=== PATIENT | male | born 1955 | race Caucasian/White ===

== ENCOUNTER 2017-04-29 12:22 | Inpatient (IN) ==
[~2017-04-29 12:22] MED LIST: GLYCOPYRROLATE 0.4 MG/2 ML VIAL ONE; HEPARIN 1,000 UNIT/1 ML VIAL ONE; LABETALOL 100 MG/20 ML VIAL IV ONE; LIDOCAINE 2% 5 ML VIAL ONE; NEOSTIGMINE 10 MG/10 ML VIAL ONE; ONDANSETRON 4 MG/2 ML VIAL ONE; PROPOFOL 200 MG/20 ML VIAL IV ONE; ROCURONIUM 100 MG/10 ML VIAL IV ONE; SUCCINYLCHOLINE 200 MG/10 ML VIAL ONE
[2017-04-29] MEDS ORDERED: HYDROmorphone 2 MG/1 ML VIAL IV STA ×3 (12:44→14:47)
[2017-04-29] MEDS ORDERED: ONDANSETRON ODT 4 MG TABLET PO STA (12:44)
--- NOTE | 2017-04-29 12:48 | Emergency Department Note ---
Arrival - Arrival Chief Complaint: Back Stated Complaint: abd pain ED Nursing Triage Note: Constant lower back pain for 3 days. States that pain is sharp and radiates to hips and ribs. States that it gets worse when he lays down. Diagnosed with AAA 3 years ago. Last check was 2 years ago. Mode of Arrival: Stretcher Limitations: No Limitations Source: Patient, Family, RN Notes Reviewed Time Seen by Provider: 04/29/17 12:39 - History of Present Illness HPI Narrative: Patient is a 61-year-old white male who is seen today with a 3 day history of low back pain and abdominal pain which is sharp. Patient denies nausea or vomiting. He denies any melena hematochezia or hematemesis. The patient does have a history of chronic low back pain and is scheduled to see a neurosurgeon next week at [facility] for evaluation of possible discectomy. Patient is routinely followed by Dr. Quintero. Patient has a known history of abdominal aortic aneurysm but has not had this followed up in some 2 years. Patient states that the last time he was seen for his aneurysm it was "3.2 cm". Onset (ago): day(s) (3) Consistency: constant Severity: moderate Quality: sharp Allergies/Adverse Reactions: Allergies Allergy/AdvReac Type Severity Reaction Status Date / Time Shellfish Allergy Severe NUMBNESS Verified 02/16/15 14:05 MYELOGRAM DYE Allergy Severe NUMBNESS Uncoded 02/16/15 14:04 Home Medications: Home Medications Medication Instructions Recorded Confirmed Type Albuterol Sulfate [Ventolin HFA] 2 puffs INH Q4-6H PRN 01/23/15 06/02/15 History Aspirin [Children's Aspirin] 81 mg PO DAILY 01/23/15 06/02/15 History Atorvastatin [Lipitor] 40 mg PO BEDTIME 01/23/15 06/02/15 History Carvedilol [Coreg] 12.5 mg PO BID 01/23/15 06/02/15 History Docusate Sodium [Colace] 100 mg PO PRN PRN 01/23/15 06/02/15 History Lisinopril 10 mg PO DAILY 01/23/15 06/02/15 History Morphine Sulfate [Morphine ER Cap] 30 mg PO BID 01/23/15 06/02/15 History Oxycodone HCl/Acetaminophen 1 each PO QID 01/23/15 06/02/15 History [Oxycodone-Acetaminophen 10-325] clonazePAM TAB [KlonoPIN] 1 mg PO BID 01/23/15 06/02/15 History Cyclobenzaprine [Flexeril] 10 mg PO BEDTIME PRN 06/02/15 06/02/15 History Lubiprostone [Amitiza] 24 mcg PO BID 06/02/15 06/02/15 History Multivitamin with Minerals [One 1 each PO DAILY 06/02/15 06/02/15 History Daily 50 Plus] Bisacodyl Tab [Dulcolax Tab] 10 mg PO DAILY PRN #60 tablet 06/03/15 Rx Polyethylene Glycol Powder 17 gm PO QID powder 06/03/15 Rx [Miralax] Review of System - Review of System 12 point system: reviewed and no additional remarkable complaints except as stated - Review of System Constitutional: Absent: chills, fever Respiratory: Absent: cough, respiratory distress Gastrointestinal: Present: as per HPI, abdominal pain, constipation. Absent: nausea, vomiting, diarrhea, hematemesis, melena, hematochezia Musculoskeletal: Present: back pain (Chronic low back pain) Skin: Absent: rash Medical,Surgical,& Family Hx - Medical History Cardio: History of: Aneurysm (aortic), Hypertension, [place] (TRIPLE BYPASS 2006) Psychological: History of: Depression Respiratory: History of: Obstructive Sleep Apnea (wears c pap) Genitourinary: History of: Bladder Problem (can not empty) Gastrointestinal: History of: GI Problems (chronic constipation) Musculoskeletal: History of: Musculoskeletal Problems (arthritis) Hematology: History of: Anemia - Surgical History Cardiac Surgeries: Sugical HX of: Cardiac Surgery (CABG) Abdominal Surgeries: Surgical HX of: Hernia Repair (1972) - Family History Family History: Reports;: Family Cancer (father), Family Diabetes (mother and uncle), Family Hypertension (everyone), Family Stroke (mother brother) - Social History Smoking Status: Current every day smoker Exam Vital Signs: Vital Signs Temperature 97.3 F L 04/29/17 12:28 Pulse Rate 66 04/29/17 12:46 Respiratory Rate 20 04/29/17 12:46 Blood Pressure 175/92 04/29/17 12:46 O2 Sat by Pulse Oximetry 100 04/29/17 12:46 GENERAL: This is a chronically ill-appearing white male in no apparent distress. VITAL SIGNS: Reviewed HEENT: Head is atraumatic and normocephalic. Pupils are equal round react to light. Extraocular movements are intact. Oropharynx is benign with moist mucous membranes. NECK: Neck is soft and supple without tenderness. There are no masses. There is no lymphadenopathy. LUNGS: Lungs are clear to auscultation. Chest rises symmetrically. There is no chest wall tenderness. CV: Heart is regular rate and rhythm without murmurs rubs or gallops. ABDOMEN: Abdomen is soft, nontender to palpation. Patient does have a pulsatile mass just to the left of the umbilicus. There is no organomegaly. Bowel sounds are present and active. Pulses are 2+ and bilaterally equal at femoral. SKIN: Skin is warm and dry. No rash. EXTREMITIES: Patient has full range of motion without tenderness. There is no pedal edema. NEUROLOGIC: Awake alert and oriented 4. Cranial nerves II through XII are grossly intact. Motor is 5 over 5 in all extremities bilaterally. Deep tendon reflexes are 2+ and bilaterally equal. Course - Consultations Consultation #1: Discussed with Dr. Wu. Patient will be seen in the emergency department. Time: 14:12 Consultation #2: Discussed with Dr. Thorpe. Time: 14:12 Results - Labs CBC & BMP: 04/29/17 12:42 04/29/17 12:42 Lab Results: I have reviewed the patients labs Labs: Laboratory Tests 04/29/17 12:42 Troponin I < 0.015 - EKG EKG results: interpreted by ERMD - Impressions EKG: Normal sinus rhythm with a rate of 64, normal ST-T waves, normal axis. - Diagnostic Findings Procedure: Abdominal x-ray: image reviewed by me (Nonspecific gas pattern, no free air.), Chest x-ray: image reviewed by me (Old median sternotomy, Mediport present on the right with tip in the superior vena cava.), CT Abdomen and Pelvis : image reviewed by me, report reviewed by me (CTA of the abdomen: Patient has markedly irregular abdominal aortic aneurysm with surrounding periaortic stranding consistent with inflammation. See report.) Disposition Clinical Impression: Chronic low back pain, Abdominal aortic aneurysm, Essential hypertension, Medical non-compliance, Coronary artery disease, Carotid artery disease Case discussed with: patient Condition: Stable
[2017-04-29] MEDS ORDERED: ONDANSETRON ODT 4 MG TABLET PO ONE (12:51)
[2017-04-29] MEDS ORDERED: HYDROmorphone 2 MG/1 ML VIAL ONE ×3 (12:52→14:43)
[2017-04-29 12:54] LABS: Basophils % 0.1 % (0.0-0.8); Eosinophils # 0.1 10*3/uL (0.0-0.87); Eosinophils % 0.6 % (0.00-10.9); Hematocrit 34.9 VOL% (42.0-52.0); Hemoglobin 12.4 GM/DL (14.0-18.0); Immature Granulocytes % 0.3 %; Immature Granulocytes Absolute 0.02 #; Lymphocytes # 1.8 10*3/uL (1.4-4.0); Lymphocytes % 22.8 % (21.2-54.2); Mean Corpuscular HGB Conc 35.5 GM/DL (32-36); Mean Corpuscular Hemoglobin 31 PG (27-34); Mean Corpuscular Volume 86.2 FL (87-102); Mean Platelet Volume 9.9 FL (9.6-12.0); Monocytes # 0.8 10*3/uL (0.11-0.8); Monocytes % 9.9 % (1.7-12.7); Neutrophils # 5.2 10*3/uL (1.4-7.4); Neutrophils % 66.3 % (38.7-73.9); Platelet Count 243 T/CUMM (130-400); Red Blood Count 4.05 MC/CUMM (3.8-5.5); Red Cell Distribution Width 12.1 % (9.3-17.3); White Blood Count 7.8 T/CUMM (4-12)
[2017-04-29 13:03] LABS: Apearance,Urine CLEAR (Clear); Bacteria,Urine Occasional /HPF (Few); Bilirubin,Urine Negative (Negative); Blood, Urine Negative (Negative); Glucose,Urine (UA) Negative (Negative); Ketones,Urine 80 mg/dL (Negative); Mucus,Urine Occasional /LPF (Occasional); Nitrite,Urine Negative (Negative); Protein,Urine 30 MG/DL; RBC,Urine 1 /HPF (0-4); Urine Color Yellow (Yellow); Urine Specific Gravity 1.018 (1.001-1.035); Urine Urobilinogen < 2.0 EU/DL (0.2-1.0); WBC,Urine <1 /HPF (0-6)
[2017-04-29 13:34] LABS: Alanine Aminotransferase 15 U/L (16-61); Albumin 3.6 G/DL (3.4-5.0); Alkaline Phosphatase 82 U/L (45-117); Aspartate Amino Transferase 10 U/L (0-37); Blood Urea Nitrogen 13 MG/DL (7-18); Calcium 9.2 MG/DL (8.5-10.1); Glucose 89 MG/DL (74-106); Osmolality,Calculated 271.8 MOS/KG (273-304); Sodium 137 MMOL/L (136-145); Total Protein 7.1 G/DL (6.4-8.3); Troponin I Only < 0.015 NG/ML (0.00-0.045)
--- NOTE | 2017-04-29 13:56 | XRay Report ---
XR chest 1V portable Indication: Generalized abdominal pain Comparison: Chest x-ray dated June 02, 2015 Technique: Single frontal view of the chest. Findings: Stable chest x-ray without acute cardiopulmonary process demonstrated. Status post sternotomy. Right-sided port catheter appears grossly unchanged. Chronic change of the lungs without focal consolidation, pleural effusion, or pneumothorax. Visualized osseous and surrounding soft tissue structures appear grossly unchanged. IMPRESSION: Stable chest x-ray without acute cardiopulmonary process demonstrated. PROCEDURE INTERPRETED AT [facility] DEPARTMENT OF RADIOLOGY Final Report Signed by: Dr Dandre Vu
[2017-04-29] MEDS ORDERED: ONDANSETRON 4 MG/2 ML VIAL ONE (13:58)
--- NOTE | 2017-04-29 14:01 | XRay Report ---
XR abdomen 2V Indication: Generalized abdominal pain Comparison: None Technique: Frontal views of the abdomen in the supine and upright position. Findings: Contrast material noted within the urinary collecting system and bladder. Nonspecific nonobstructive bowel gas pattern. Visualized osseous and surrounding soft tissue structures demonstrate no acute abnormality. IMPRESSION: No acute abnormality demonstrated. PROCEDURE INTERPRETED AT [facility] DEPARTMENT OF RADIOLOGY Final Report Signed by: Dr Dandre Vu
[2017-04-29] MEDS ORDERED: LABETALOL 20 MG/4 ML SYRINGE IV STA (14:02)
--- NOTE | 2017-04-29 14:02 | CT Report ---
History is abdominal pain with abdominal aortic aneurysm Axial images obtained with 2-D multiplanar reconstruction images and 3-D CTA reconstruction images also stored and interpreted 100 cc Omni 350 utilized Comparison 06/02/2015 No space-occupying mass in the liver, spleen, pancreas, adrenals, or right kidney. There is a 2.3 cm cyst in lower pole left kidney. Bowel is unopacified There is an abdominal aortic aneurysm measuring up to at least 3.7 cm compared to 2.9 cm in the prior study. There has been interval development of marked worsening irregularity of the opacified lumen with several areas of the irregular contours of the opacified lumen and this small linear defects within the contrast, well below the level of the renal arteries. A more focal 1 cm area of penetrating ulcer or contained rupture extends anteriorly just above the bifurcation. There has been development of hematoma surrounding the abdominal aortic aneurysm measuring up to at least 1.2 cm in thickness. There is some mild additional stranding in surrounding fat. There is minimal plaque in the celiac and SMA origins. The are felt to be single renal arteries bilaterally. There is a proximal bifurcation of the left renal artery. The CHATA is patent. Mild plaque and stenosis of the left common iliac artery present. Minimal plaque present in the external iliac arteries Pelvis: There is a tiny amount of nonspecific free fluid in the pelvis. Minimal diverticuli present. Critical test results personally discussed with the ordering physician at 1:50 PM. Impression: Enlarging abdominal aortic aneurysm with development of marked irregularity of the lumen consistent with new large penetrating ulcer and/or contained rupture with new surrounding hematoma. The CT exam was performed using one or more of the following dose reduction techniques: Automated exposure control, adjustment of the mA and/or kV according to patient size, or use of iterative reconstruction technique. PROCEDURE INTERPRETED AT [facility] DEPARTMENT OF RADIOLOGY Final Report Signed by: Dr. Jennifer Luis
[2017-04-29] MEDS ORDERED: LABETALOL 20 MG/4 ML SYRINGE IV ONE (14:06)
[2017-04-29] MEDS ORDERED: ONDANSETRON 4 MG/2 ML VIAL IV STA (14:11)
[2017-04-29] MEDS ORDERED: ONDANSETRON 4 MG/2 ML VIAL IV PRN (16:20)
[2017-04-29] MEDS ORDERED: HYDROmorphone 2 MG/1 ML VIAL IV PRN (16:20)
[2017-04-29] MEDS ORDERED: SODIUM CHLORIDE 0.45% 1,000 ML IV SCH (16:20)
[2017-04-29] MEDS ORDERED: ACETAMINOPHEN 325 MG TABLET PO PRN (16:20)
[2017-04-29] MEDS ORDERED: oxyCODONE/ACETAMINOPHEN 5-325 MG TABLET PO PRN (16:33)
[2017-04-29] MEDS ORDERED: NALOXONE 0.4 MG/ML VIAL IV PRN (16:34)
[2017-04-29] MEDS ORDERED: NITROPRUSSIDE 50 MG/2 ML VIAL ONE (16:43)
--- NOTE | 2017-04-29 16:48 | General Surg History&Physical ---
Assessment and Plan (1) Abdominal aneurysm Status: Acute Assessment and plan: Mr. Flores has been acutely symptomatic aortic aneurysm that is tender. We feel that the benefits of endovascular repair outweigh the risks of observing him in critical care area tonight over immediate repair in an open fashion. I have discussed these plans in detail with Mr. Pennington and his explaining the alternatives fully they understand and accept. Current Visit: Yes History of Present Illness Chief complaint: symptomatic AAA History of present illness: Mr. Wooten is a 61 year old male Justin Flores a 61-year-old man who I met in the past with a modest abdominal aortic aneurysm that was asymptomatic. I had not seen him since 2014 at which time his aneurysm was 3 cm in maximum diameter. Mr. Pennington has a history of chronic back pain and has taken a number of pain medications over the years currently on fentanyl patch but states that he developed worsening back pain approximately a week ago and approximately 3 days ago began radiating to his lower abdomen. This is different and he is come to the emergency room where CT scan reveals a significantly changed abdominal aortic aneurysm. It measures greater than 4 cm in diameter but has an inflammatory component surrounding it and some ulceration. This is difficult to determine if there is actually a dissection in the intima or just within the thrombus and whether or not this is a acutely expanding aneurysm or an inflammatory aneurysm. His vital signs have been stable with no tachycardia his blood pressures been up and has been off of his pain medication his blood pressure meds for some time. He does have a past history of coronary bypassing and right carotid endarterectomy done in [place] number of years ago. He has not seen a handbell choir director at any recent time but has not had any particular chest pain to suggest acute changes in his coronary disease. I reviewed the situation with Dr. Kyaw Thorpe feel that Mr. Wooten is a good candidate for an endovascular aneurysm repair and we feel that it is very reasonable approach to manage him with close observation tonight and plan an endovascular repair in the morning when a graft will become available. I discussed this with Mr. Pennington and his explaining our physician explaining the alternative of an open repair immediately but I think at this point in time it is a reasonable approach for him to be observed in intensive care unit with the plan for endovascular repair of his aortic aneurysm tomorrow he understands and agrees Home Medications Medication Instructions Recorded Confirmed Type Oxycodone HCl/Acetaminophen 1 each PO Q8H PRN 04/12/15 07/17/17 History [Oxycodone-Acetaminophen 10-325] fentaNYL 50 MCG/HR PATCH 1 patch TRANSDERM Q3DAY 04/29/17 04/29/17 History [Duragesic 50 Patch] Allergies Allergy/AdvReac Type Severity Reaction Status Date / Time Shellfish Allergy Severe NUMBNESS Verified 02/16/15 14:05 MYELOGRAM DYE Allergy Severe NUMBNESS Uncoded 02/16/15 14:04 Medical,Surgical,& Family Hx - Medical History Cardio: History of: Aneurysm (aortic), Hypertension, [place] (TRIPLE BYPASS 2006) Psychological: History of: Depression Respiratory: History of: Obstructive Sleep Apnea (wears c pap) Genitourinary: History of: Bladder Problem (can not empty) Gastrointestinal: History of: GI Problems (chronic constipation) Musculoskeletal: History of: Herniated Disk, Musculoskeletal Problems (arthritis ) Hematology: History of: Anemia - Surgical History Cardiac Surgeries: Sugical HX of: Cardiac Surgery (CABG) Abdominal Surgeries: Surgical HX of: Hernia Repair (1972) - Family History Family History: Reports;: Family Cancer (father), Family Diabetes (mother and uncle), Family Hypertension (everyone), Family Stroke (mother brother) - Social History Smoking Status: Current every day smoker Frequency of Alcohol Use: None Type of Drug Use: None, Opiates Exam - Constitutional Vitals: Period Temp Pulse Resp BP Sys/Bray Pulse Ox Last 24 Hr 97.3 F-97.3 F 63-67 18-20 143-189/75-103 96-100 General appearance: normal weight, mild distress - Head Head exam: Present: normal inspection - Eye Eye exam: Present: EOMI Pupils: Present: MISA - ENT ENT exam: Present: normal external ear exam, normal oropharynx Mouth exam: Present: normal voice - Neck Neck exam: Present: normal inspection - Respiratory Respiratory exam: Present: clear to auscultation bilaterally - Cardiovascular Cardiovascular exam: Present: RRR, other - GI/Abdominal GI/Abdominal exam: Present: normal bowel sounds, tenderness (Tenderness in the lower midline), other (Aneurysm is not palpable no sign of flank contusions) - Extremities Exam Extremities exam: Present: normal inspection - Back Exam Back exam: Present: normal inspection - Neurological Exam Neurological exam: Present: alert, oriented X3 Speech: Present: normal - Skin Skin exam: Present: normal color 12 point system: reviewed and no additional remarkable complaints except as stated Results - Labs CBC & BMP: 04/29/17 12:42 04/29/17 12:42
[2017-04-29] MEDS ORDERED: NITROPRUSSIDE 100 MG in DEXTROSE 5% 246 ML IV SCH (17:00)
[2017-04-29] MEDS ORDERED: fentaNYL 50 MCG/HR PATCH TRANSDERM SCH (17:00)
--- NOTE | 2017-04-29 17:03 | Hospitalist Consult Note ---
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 Wooten is a 61 year old male a modest abdominal aortic aneurysm that was asymptomatic. I had not seen him since 2014 at which time his aneurysm was 3 cm in maximum diameter. Mr. Pennington has a history of chronic back pain and has taken a number of pain medications over the years currently on fentanyl patch but states that he developed worsening back pain approximately a week ago and approximately 3 days ago began radiating to his lower abdomen. This is different and he is come to the emergency room where CT scan reveals a significantly changed abdominal aortic aneurysm. It measures greater than 4 cm in diameter but has an inflammatory component surrounding it and some ulceration. Patient ran out of his blood pressure medication one month ago and did not have them refilled. CC: Mode Wu MD - Home Medications and Allergies Home Medications: Home Medications Medication Instructions Recorded Confirmed Type Oxycodone HCl/Acetaminophen 1 each PO Q8H PRN 01/23/15 04/29/17 History [Oxycodone-Acetaminophen 10-325] fentaNYL 50 MCG/HR PATCH 1 patch TRANSDERM Q3DAY 04/29/17 04/29/17 History [Duragesic 50 Patch] Allergies/Adverse Reactions: Allergies Allergy/AdvReac Type Severity Reaction Status Date / Time Shellfish Allergy Severe NUMBNESS Verified 02/16/15 14:05 MYELOGRAM DYE Allergy Severe NUMBNESS Uncoded 02/16/15 14:04 Medical,Surgical,& Family Hx - Medical History Cardio: History of: Aneurysm (aortic), Hypertension, [place] (TRIPLE BYPASS 2006) Psychological: History of: Depression Respiratory: History of: Obstructive Sleep Apnea (wears c pap) Genitourinary: History of: Bladder Problem (can not empty) Gastrointestinal: History of: GI Problems (chronic constipation) Musculoskeletal: History of: Herniated Disk, Musculoskeletal Problems (arthritis ) Hematology: History of: Anemia - Surgical History Cardiac Surgeries: Sugical HX of: Cardiac Surgery (CABG) Abdominal Surgeries: Surgical HX of: Hernia Repair (1972) - Family History Family History: Reports;: Family Cancer (father), Family Diabetes (mother and uncle), Family Hypertension (everyone), Family Stroke (mother brother) - Social History Smoking Status: Current every day smoker Frequency of Alcohol Use: None Type of Drug Use: None, Opiates Marital Status: Lives With:: Spouse Functional capacity: independent ambulation - Constitutional Constitutional: Absent: fever(s), headache(s), weakness - EENT Eyes: Absent: blurry vision, diplopia Ears: Absent: decreased hearing, ear discharge Nose, mouth and throat: Absent: headache(s), sore throat - Cardiovascular Cardiovascular: Absent: chest pain at rest, dyspnea - Respiratory Respiratory: Absent: dyspnea, dyspnea on exertion - Gastrointestinal Gastrointestinal: Present: abdominal pain, constipation. Absent: diarrhea, nausea, vomiting - Genitourinary Genitourinary: Absent: difficulty urinating, dysuria - Musculoskeletal Musculoskeletal: Present: back pain - Neurological Neurological: Absent: headache(s), syncope - Psychiatric Psychiatric: Absent: anxiety, depression - Endocrine Endocrine: Absent: fatigue, heat intolerance - Hematologic/Lymphatic Hematologic/Lymphatic: Absent: easy bleeding, easy bruising Exam - Constitutional Vitals: Period Temp Pulse Resp BP Sys/Bray Pulse Ox Last 24 Hr 97.3 F-97.3 F 63-67 18-20 143-189/75-103 96-100 General appearance: normal weight, mild distress - Head Head exam: Present: normal inspection, normocephalic - Eye Eye exam: Present: EOMI. Absent: scleral icterus Pupils: Present: MISA, normal accommodation - ENT ENT exam: Present: normal exam, normal external ear exam - Neck Neck exam: Absent: lymphadenopathy, thyromegaly - Respiratory Respiratory exam: Present: clear to auscultation bilaterally. Absent: rhonchi, wheezes - Cardiovascular Cardiovascular exam: Present: regular rate and rhythm. Absent: systolic murmur - GI/Abdominal GI/Abdominal exam: Present: normal bowel sounds, soft. Absent: tenderness - Extremities Exam Extremities exam: Present: normal inspection, normal capillary refill - Neurological Exam Neurological exam: Present: alert, oriented X3, CN II-XII intact, reflexes normal. Absent: motor sensory deficit - Psychiatric Psychiatric exam: Present: normal affect, normal mood - Skin Skin exam: Present: normal color, warm Results - Labs CBC & BMP: 04/29/17 12:42 04/29/17 12:42 Lab Results: I have reviewed the past 24 hour labs - Diagnostic Findings Procedure: CT Abdomen and Pelvis: report reviewed by me (enlarging AAA marked irregularity may be due to inflammation)
--- NOTE | 2017-04-29 17:06 | Inventional Radiology Consult ---
Assessment and Plan - Time spent with patient Time spent with patient: Less than 30 minutes IR Consult - Data of Consult Patient: new to practice Consult date: 05/06/17 Requesting Physician: Mode Wu - Consult Narrative Reason for consult: abdominal pain, enlarging AAA History of present illness: A/P: enlarging AAA with new/worsening abdominal pain - concerning for impending rupture. Will admit to ICU with aggressive BP control for EVAR tomorrow. Dr. Justin Wu also seeing this patient. risk of procedure d/w with patient and family Sugar is a 61 year old M Mr. Pennington is a known patient of Dr. Wu, who was seen several years ago with a small aortic aneurysm. However, he presents to the emergency room today with new uncharacteristic back pain and abdominopelvic pain. Imaging demonstrates a abdominal aortic aneurysm which has increased in size since prior imaging, (now measuring 3.3 cm) with marked irregularity of the mural thrombus and/or possible small focal ulcerative plaques. Additionally , there is moderate surrounding inflammatory changes and a degree of inflammatory aortitis is not excluded. No nausea vomiting. No chest pain or shortness of breath. Patient's oracle erp architect is in [place]. History of coronary stenting and subsequent triple bypass approximately 10 years ago. Brief review of systems: General: No fevers. Cardiovascular: No chest pain. Respiratory: No significant productive cough shortness of breath. Gastrointestinal: No nausea vomiting or diarrhea reported. Genitourinary: No change in bladder habits. Musculoskeletal: Long history of back pain, patient sees pain management for this. Endocrinologic/integumentary: No endocrinologic disorders. No easy bruising/ bleeding. - Home Medications and Allergies Home Medications: Home Medications Medication Instructions Recorded Confirmed Type Oxycodone HCl/Acetaminophen 1 each PO Q8H PRN 01/23/15 04/29/17 History [Oxycodone-Acetaminophen 10-325] fentaNYL 50 MCG/HR PATCH 1 patch TRANSDERM Q3DAY 04/29/17 04/29/17 History [Duragesic 50 Patch] Allergies/Adverse Reactions: Allergies Allergy/AdvReac Type Severity Reaction Status Date / Time Shellfish Allergy Severe NUMBNESS Verified 02/16/15 14:05 MYELOGRAM DYE Allergy Severe NUMBNESS Uncoded 02/16/15 14:04 12 point system: reviewed and no additional remarkable complaints except as stated (see hpi) Medical,Surgical,& Family Hx - Medical History Cardio: History of: Aneurysm (aortic), Hypertension, CT (TRIPLE BYPASS 2006) Psychological: History of: Depression Respiratory: History of: Obstructive Sleep Apnea (wears c pap) Genitourinary: History of: Bladder Problem (can not empty) Gastrointestinal: History of: GI Problems (chronic constipation) Musculoskeletal: History of: Herniated Disk, Musculoskeletal Problems (arthritis ) Hematology: History of: Anemia - Surgical History Cardiac Surgeries: Sugical HX of: Cardiac Surgery (CABG) Abdominal Surgeries: Surgical HX of: Hernia Repair (1972) - Family History Family History: Reports;: Family Cancer (father), Family Diabetes (mother and uncle), Family Hypertension (everyone), Family Stroke (mother brother) - Social History Smoking Status: Current every day smoker Frequency of Alcohol Use: None Type of Drug Use: None, Opiates Exam - Labs CBC & BMP: 04/29/17 12:42 04/29/17 12:42 - Constitutional Vitals: Period Temp Pulse Resp BP Sys/Bray Pulse Ox Last 24 Hr 97.3 F-97.3 F 63-67 18-20 143-189/75-103 96-100 General appearance: over weight - Eye Eye exam: Present: EOMI - Respiratory Respiratory exam: Present: clear to auscultation bilaterally - Cardiovascular Cardiovascular exam: Present: regular rate and rhythm Peripheral pulses: 2+: Common Femoral (R), Common Femoral (L), Dorsalis Pedis (R ), Dorsalis Pedis (L) - GI/Abdominal GI/Abdominal exam: Present: hyperactive bowel sounds - Neurological Exam Neurological exam: Present: alert, oriented X3 - Psychiatric Psychiatric exam: Present: normal affect, normal mood - Skin Skin exam: Present: normal color, dry
[2017-04-29] MEDS: HYDROmorphone PCA 30 MG/30 ML SYRINGE IV SCH (17:13)
[2017-04-29] MEDS: amLODIPine 10 MG TABLET PO SCH (17:13)
[2017-04-29 18:12] LABS: Calcium 8.6 MG/DL (8.5-10.1); Magnesium 1.9 MG/DL (1.8-2.4); Osmolality,Calculated 274.8 MOS/KG (273-304)
[2017-04-29] MEDS ORDERED: CHLORHEXIDINE 4% SOLN 118 ML BOTTLE TOP ONE (21:00)
[2017-04-30 04:10] LABS: Basophils % 0.3 % (0.0-0.8); Eosinophils # 0.2 10*3/uL (0.0-0.87); Eosinophils % 3.1 % (0.00-10.9); Hematocrit 33.1 VOL% (42.0-52.0); Immature Granulocytes % 0.3 %; Immature Granulocytes Absolute 0.02 #; Lymphocytes % 34.3 % (21.2-54.2); Mean Corpuscular HGB Conc 33.2 GM/DL (32-36); Mean Corpuscular Hemoglobin 30 PG (27-34); Mean Corpuscular Volume 90.7 FL (87-102); Mean Platelet Volume 10.2 FL (9.6-12.0); Monocytes # 0.6 10*3/uL (0.11-0.8); Monocytes % 10.2 % (1.7-12.7); Neutrophils % 51.8 % (38.7-73.9); Platelet Count 231 T/CUMM (130-400); Red Blood Count 3.65 MC/CUMM (3.8-5.5); Red Cell Distribution Width 12.3 % (9.3-17.3); White Blood Count 5.8 T/CUMM (4-12)
--- NOTE | 2017-04-30 06:06 | EKG Report ---
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
[2017-04-30] MEDS ORDERED: HEPARIN 5,000 UNIT/1 ML VIAL ONE (06:32)
[2017-04-30] MEDS ORDERED: TISSUE ADHESIVE 1 EACH APPLICATOR TOP ONE (06:32)
[2017-04-30] MEDS ORDERED: VANCOMYCIN 500 MG VIAL ONE (06:33)
[2017-04-30] MEDS ORDERED: THROMBIN TOPICAL (RECOMBINANT) 5,000 UNIT VIAL TOP ONE (06:33)
--- NOTE | 2017-04-30 07:33 | Event Note ---
Stable vital signs but with increasing back and lower abdominal pain. H&H is stable as well. Patient does not appear to be in severe distress but we will proceed on with endovascular repair of his abdominal aortic aneurysm this morning
[2017-04-30] MEDS ORDERED: HEPARIN/NACL 0.9% 2 UNITS/ML 3,000 ML IV ONE (07:41)
[2017-04-30] MEDS ORDERED: diphenhydrAMINE 50 MG/1 ML VIAL IV ONE (08:00)
[2017-04-30] MEDS ORDERED: ceFAZolin 2,000 MG in PREMIX 1 EACH IV ONE (08:00)
[2017-04-30] MEDS ORDERED: methylPREDNISolone SOD SUC 125 MG/2 ML VIAL IV ONE (08:00)
[2017-04-30] MEDS: LACTATED RINGERS 1,000 ML IV SCH ×2 (08:10→10:31)
[2017-04-30] MEDS: HYDROmorphone 2 MG/1 ML VIAL IV PRN ×4 (10:40→10:55)
[2017-04-30] MEDS ORDERED: ONDANSETRON 4 MG/2 ML VIAL ONE (10:41)
[2017-04-30] MEDS ORDERED: HYDROmorphone 2 MG/1 ML VIAL ONE (10:41)
--- NOTE | 2017-04-30 10:46 | Operative Note ---
Date of procedure: 04/30/17 Procedure: Dr. Wu operative report Justin Pennington. Surgeon: Jazmin Interventional radiologist Maurilio. Anesthesia: Marisa general endotracheal Preoperative diagnosis: Acutely symptomatic and enlarging abdominal aortic aneurysm Postoperative diagnosis: Same Procedure: Endovascular repair of abdominal aortic aneurysm with a direct graft. Bilateral femoral cutdowns and repairs. Indications for procedure: Mr. Wooten is a 61-year-old man who was admitted through the emergency room yesterday with an acutely tender abdominal aortic aneurysm that had enlarged approximately 2 cm in 2 years and had an inflammatory changes around the lower abdomen. It was an aneurysm amenable to endovascular repair he was stable there was no acute sign of leakage we therefore elected to delay the surgery until this morning in order to perform endovascular repair. I discussed the procedure risk and complications with him in detail and his fully understood and accepted Description of the procedure: After the induction of general endotracheal anesthesia in the interventional radiology suite the patient's abdomen groins and thighs were prepped with ChloraPrep Ioban and draped in usual fashion. I began by performing bilateral femoral cutdowns incisions were made just above the inguinal crease carried into the femoral canals both common femoral arteries were controlled with Vesseloops notably these were good size arteries that were soft without significant calcification. The patient received 5000 units of intravenous heparin Dr. Thorpe joints the case and at this point we performed access into the common femoral arteries with placement of the indirect graft completion angioplasty and arteriography. Dr. Thorpe will separately dictate the details of the placement of the endograft. With good placement of the graft and no evidence of endoleak's I then removed all sheaths and repaired each of the common femoral arteries with 5-0 Prolene sutures getting good flow down both of the femoral arteries by palpation and by Doppler. The patient had received an extra 2000 units of intravenous heparin during the procedure this was left on reversed. The incisions were irrigated Surgicel was placed over each arteriotomy and the incisions were closed with 2 layers running 2-0 Monocryl 4 Monocryl subcuticular and surgical glue. Patient had good warm feet and well-perfused completion of the procedure blood loss is estimated 250 cc sponge needle and his counts are correct and the patient taken to recovery in stable condition Surgeon / Physician: Mode Wu Results - Labs CBC & BMP: 04/30/17 03:27 04/29/17 17:38 Discharge Plan - Discharge Medications No Action Oxycodone HCl/Acetaminophen [Oxycodone-Acetaminophen 10-325] 1 each PO Q8H PRN PRN Reason: Pain fentaNYL 50 MCG/HR PATCH [Duragesic 50 Patch] 1 patch TRANSDERM Q3DAY - Follow Up or Referral - Forms/Instructions
[2017-04-30] MEDS ORDERED: fentaNYL 100 MCG/2 ML VIAL ONE (10:47)
[2017-04-30] MEDS ORDERED: MIDAZOLAM 2 MG/2 ML VIAL ONE (10:47)
[2017-04-30] MEDS ORDERED: SEVOFLURANE 1 UNIT/15 MINUTE INH ONE (10:47)
[2017-04-30] MEDS ORDERED: LACTATED RINGERS 1,000 ML IV ONE (10:47)
[2017-04-30] MEDS ORDERED: ACETAMINOPHEN 1,000 MG/100 ML VIAL IV ONE (10:47)
[2017-04-30] MEDS ORDERED: SODIUM CHLORIDE 0.9% 1,000 ML IV ONE (10:48)
[2017-04-30] MEDS ORDERED: ONDANSETRON 4 MG/2 ML VIAL IV PRN (10:55)
--- NOTE | 2017-04-30 10:55 | Post Interventional Procedure ---
Pre-op diagnosis: AAA Post-op diagnosis: same Procedure: Endovascular aortic repair with surgical cut-down of both groins by vascular surgery Contrast: 70 ml Omni 350 Flouroscopy: 18.2 min Radiologist: Kyaw Thorpe Anesthesia: GETA Specimens: none sent Estimated blood loss: minimal (100 mL) Complications: none Condition: stable Description/Findings: EVAR completed without difficulty. See formal dictation for procedural details. Assessment and Plan - Time spent with patient Time spent with patient: Greater than 30 minutes
[2017-04-30] MEDS ORDERED: SODIUM CHLORIDE 0.9% 1,000 ML IV SCH (11:00)
[2017-04-30] MEDS: MORPHINE 2 MG/1 ML SYRINGE IV PRN ×2 (11:05→11:15)
[2017-04-30] MEDS ORDERED: MORPHINE 10 MG/1 ML VIAL ONE (11:08)
[2017-04-30] MEDS ORDERED: cloNIDine 0.1 MG TABLET ONE (11:08)
[2017-04-30] MEDS ORDERED: cloNIDine 0.1 MG TABLET PO ONE (11:10)
[2017-04-30 11:12] LABS: Hemoglobin 10.6 GM/DL (14.0-18.0)
[2017-04-30] MEDS: DEXTROSE 5% NACL 0.45% 1,000 ML IV SCH (11:50)
[2017-04-30] MEDS: amLODIPine 10 MG TABLET PO SCH (11:56)
[2017-04-30] MEDS: PANTOPRAZOLE 40 MG TABLET PO SCH (11:56)
[2017-04-30] MEDS ORDERED: fentaNYL 50 MCG/HR PATCH TRANSDERM SCH (12:00)
--- NOTE | 2017-04-30 12:13 | Hospitalist Progress Note ---
Assessment and Plan (1) Abdominal aneurysm Status: Acute Assessment and plan: Status post bilateral cutdown with placement of endovascular graft repairing the abdominal aortic aneurysm today by Dr. Wu, cont fentanyl patch and dilaudid business specialist Current Visit: Yes (2) Chronic low back pain Status: Acute Assessment and plan: cont fentanyl patch and percocet prn Current Visit: Yes (3) Essential hypertension Status: Acute Assessment and plan: cont norvasc 10 mg, nipride to keep systolic between 100 to 150 Current Visit: Yes (4) Medical non-compliance Status: Acute Current Visit: Yes Hospitalist: Subjective Interval history: Patients some pain after returning from surgery, His blood pressure is up and we will restart the norvasc, and nipride if needed. Exam - Constitutional Vitals: Period Temp Pulse Resp BP Sys/Bray Pulse Ox Last 24 Hr 97.2 F-98.5 F 51-75 13-21 98-189/53-103 20-100 Exam: Heart Rate-[RRR] Lungs-[CTAB] GI-[+bs soft, NT] Ext-[no edema] Neuro [Motor 5/5], [alert and oriented times 3] psych [agitated mood and affect] General [no acute distress] Results - Labs CBC & BMP: 04/30/17 11:03 04/29/17 17:38 Lab Results: I have reviewed the past 24 hour labs Quality Measures - VTE Contraindication to Pharmacological VTE Prophylaxis: High Risk of Bleeding
--- NOTE | 2017-04-30 14:41 | Interventional Radiology Rpt ---
[place]o [place] [id number] 04/30/2017 12:00 AM CPT codes: 16350 with 62 modifier 08113 with 50 modifier 10115 [id number] Operating Physicians: Kyaw Thorpe M.D. Justin Wu M.D. Indication: Enlarging aneurysm with new abdominal pain and back pain, concerning for impending rupture. A mild-moderate degree of inflammatory changes is also suspected on cross-sectional images. Time out: A formal timeout performed. Patient was placed under general endotracheal anesthesia. Dr. Andrew Wu provided primary cutdown to both common femoral arteries, which will be described under separate report if necessary. The right common femoral artery was directly accessed with a vascular needle. This was cannulized with a J-wire which was advanced into the suprarenal abdominal aorta. A 6 Mauritian sheath was placed into the common femoral artery, and a Giordano wire was advanced into the suprarenal abdominal aorta. The left common femoral artery was similarly accessed. Tegtmeyer catheter was then used to advance a J-wire into the suprarenal abdominal aorta. This was exchanged for a measuring pigtail catheter. Via the right groin access, a bifurcated Endurant 2s stent graft device was advanced, 25 x 14 x 103 mm. An abdominal aortogram was performed confirming the origin of the lowest left renal artery. After adjusting the position of the primary device, it was deployed, and its position adjusted slightly. A repeat arteriogram was then performed confirming the renal artery ostium. The suprarenal fixation component and contralateral gate was then deployed. The flush catheter was withdrawn over a Glidewire. Glidewire was then withdrawn and the contralateral gate directly accessed. The flush catheter was advanced into the lumen of the primary device and spun to confirm intraluminal positioning. Through the left groin sheath, a retrograde left pelvis arteriogram was performed in an FLYNN projection to confirm the position of the origin of the left hypogastric artery. From the left groin, a 16 x 13 x 124 mm limb extension was advanced and deployed from the flow divider marker to the left external iliac artery with approximately 3-4 cm of purchase on the distal outflow portion in the external iliac. The ipsilateral limb of the main body was then deployed in its entirety. The deployment apparatus was removed and a standard 16 x 13 x 93 mm Endurant 2 iliac dry placer machine operator was advanced. Through the right groin sheath, a retrograde right pelvic arteriogram was performed to confirm the ostium of the right hypogastric artery. After measurements were established, the iliac dry placer machine operator was deployed into the left common iliac artery. Sequential angioplasty was then performed by myself and Dr. Wu with compliant/reliant balloons from the inflow portion of the main body device, through the flow divider, and to the outflow portion of both iliac extenders. Moderate (50%) residual stenosis at the proximal right common iliac artery was noted nonamenable to low-pressure balloon. Therefore, repeat angioplasty was performed with a 10 x 40 mm high-pressure balloon with significant reduction in residual wasting. From the right groin, a flush catheter was then advanced into the suprarenal abdominal aorta. An aortogram was performed demonstrating no evidence of endoleak and widely patent stent graft device. Both sheaths were left in place. The flush catheter was removed and Dr. Wu primarily closed both arteriotomy sites, described under separate report. Patient was awakened and transferred to recovery in stable condition. Medications: GETA. See anesthesia notes. Estimated blood loss: 200 mL. Contrast: Omnipaque 350, 80 cc. Fluoroscopy time: 18.2 minutes. Total images for the study: 262 Impression: Technically successful endovascular repair of enlarging infrarenal abdominal aortic aneurysm utilizing a Medtronic Endurant 2s bifurcated graft as described above. PROCEDURE INTERPRETED AT [facility] DEPARTMENT OF RADIOLOGY Final Report Signed by: Kyaw Thorpe
--- NOTE | 2017-04-30 16:29 | Event Note ---
Mr. Pennington is waking up and doing well he states his lower abdominal pain is improving his back pain is getting back toward what he has normally had. Hematocrit is 31 vital signs are looking good I think we can move him to a regular room and will even talk about going home tomorrow if he continues to do well. His Palpable dorsalis pedis pulse is warm feet he has no hematomas or contusions developing at the groin incisions
[2017-04-30] MEDS: HYDROmorphone PCA 30 MG/30 ML SYRINGE IV SCH (17:20)
--- NOTE | 2017-04-30 19:07 | Event Note ---
Doing well following successful EVAR repair of AAA with expected pain at the groin incision sites. Incision sites look good. Will continue to follow along with you.
[2017-05-01] MEDS: DEXTROSE 5% NACL 0.45% 1,000 ML IV SCH ×2 (00:25→13:39)
[2017-05-01 05:28] LABS: Basophils % 0.1 % (0.0-0.8); Hematocrit 32.5 VOL% (42.0-52.0); Immature Granulocytes % 0.4 %; Immature Granulocytes Absolute 0.05 #; Lymphocytes # 0.9 10*3/uL (1.4-4.0); Mean Corpuscular HGB Conc 33.8 GM/DL (32-36); Mean Corpuscular Hemoglobin 30 PG (27-34); Mean Corpuscular Volume 89.3 FL (87-102); Mean Platelet Volume 10.4 FL (9.6-12.0); Monocytes % 7.7 % (1.7-12.7); Neutrophils # 10.6 10*3/uL (1.4-7.4); Neutrophils % 84.8 % (38.7-73.9); Platelet Count 222 T/CUMM (130-400); Red Blood Count 3.64 MC/CUMM (3.8-5.5); Red Cell Distribution Width 12.3 % (9.3-17.3); White Blood Count 12.5 T/CUMM (4-12)
[2017-05-01 06:02] LABS: Calcium 8.3 MG/DL (8.5-10.1); Osmolality,Calculated 275.7 MOS/KG (273-304); Potassium 4.3 MMOL/L (3.5-5.1)
[2017-05-01] MEDS: amLODIPine 10 MG TABLET PO SCH (08:49)
[2017-05-01] MEDS: PANTOPRAZOLE 40 MG TABLET PO SCH (08:50)
--- NOTE | 2017-05-01 09:16 | Discharge Summary ---
<Mode Wu - Last Filed: 05/01/17 09:20> Hospital Course - Hospital Course Hospital Course: Justin see in a 61-year-old man with a long history of back problems and was scheduled to see a neurosurgeon in [employer] this week to consider back surgery however his back pain worsened acutely over the weekend and radiated around to his lower abdomen him to the emergency room on Saturday where CT scan showed a significant change of an old abdominal aortic aneurysm that we had followed with ultrasound. I had seen Mr. Flores last time in 2014 and at that time ultrasound indicated approximately 3 cm abdominal aortic aneurysm. On the CT scan done Saturday the aneurysm was approaching 5 cm and showed inflammatory changes around the lower aorta is unclear if this was a acute aortitis inflammatory aneurysm or possible acute leak. The patient remained stable and we decided that it would be best to try to wait until Saturday and obtained the endograft for repair. Patient was observed in the operating in the intensive care unit placed on night pride and other meds for blood pressure control and we were able to do successfully the repair of the aneurysm yesterday with an indirect graft by Medtronic. Patient notes that his abdominal pain and back pain that was acute have resolved his legs feel better he has got palpable pedal pulses he is able to ambulate in the room. His incisions look good with no sign of infection or hematomas. Blood counts have been stable as has his creatinine although his white blood count has increased to 12,000 but there is no overt signs of infection and I do not believe that antibiotic is appropriate. I have seen with endograft's fevers and elevation of white blood count but have never found this to be associated with an ongoing bacterial infection. At this point I am going to ask Mr. Flores to ambulate in the [place] and have breakfast and lunch if he does well he can go home this afternoon. I have instructed him in wound care and exercise restrictions expected recovery and long-term plans. He already is on a fentanyl patch and takes Percocet 3 times a day for his chronic back pain and I therefore will not prescribe any further narcotics nor any new medications I did instruct him to take an 81 mg aspirin daily. I will see him next week for routine checkup we will plan a CT angiogram in 1 month as the first part of routine follow-up Diagnosis - Discharge Diagnosis (1) Abdominal aneurysm Status: Acute Specialty Discharge - Follow Up or Referrals Follow up with: Mode Wu MD [Physician] - 05/07/17 3:00 pm Discharge Plan - Discharge Data Disposition: Disch To Home/Self Care - Discharge Medications New fentaNYL 50 MCG/HR PATCH [Duragesic 50 Patch] 1 patch TRANSDERM Q3DAY patch oxyCODONE/ACETAMINOPHEN 5-325 [Percocet 5-325] 2 tablet PO Q8H PRN tablet PRN Reason: Pain Acetaminophen Tab [Tylenol Tab] 650 mg PO Q6H PRN tablet PRN Reason: Pain Mild (1-3) And/Or Fever amLODIPine [Norvasc] 10 mg PO DAILY tablet No Action Oxycodone HCl/Acetaminophen [Oxycodone-Acetaminophen 10-325] 1 each PO Q8H PRN PRN Reason: Pain fentaNYL 50 MCG/HR PATCH [Duragesic 50 Patch] 1 patch TRANSDERM Q3DAY - Follow Up or Referral Follow Up: Mode Wu MD [Physician] - 05/07/17 3:00 pm - Forms/Instructions Instructions: Abdominal Aortic Aneurysm (DC), Pain Management After Surgery (DC ), Endovascular Abdominal Aortic Aneurysm Repair (DC), Hand Hygiene (DC) Exam - Constitutional Vitals: Period Temp Pulse Resp BP Sys/Bray Pulse Ox Last 24 Hr 97.0 F-98.4 F 58-77 13-20 126-165/67-82 94-99 Discharge Results Labs on day of discharge: Labs from last 24 hours 05/01/17 05/01/17 05:12 03:42 WBC 12.5 H D RBC 3.64 L Hgb 11.0 L Hct 32.5 L MCV 89.3 MCH 30 MCHC 33.8 RDW 12.3 Plt Count 222 MPV 10.4 Neut % (Auto) 84.8 H Lymph % (Auto) 7.0 L Dickey % (Auto) 7.7 Eos % (Auto) 0.0 Baso % (Auto) 0.1 Neut # (Auto) 10.6 H Lymph # (Auto) 0.9 L Dickey # (Auto) 1.0 H Eos # (Auto) 0.0 Baso # (Auto) 0.0 Immature Gran % 0.4 Nucleated RBC % 0.0 Immature Gran # 0.05 Nucleated RBCs # 0.00 Sodium 138 Potassium 4.3 Chloride 103 Carbon Dioxide 28 Anion Gap 11.3 BUN 11 Creatinine 0.90 GFR Calculation 112 BUN/Creatinine Ratio 12.00 Glucose 137 H Calculated Osmolality 275.7 Calcium 8.3 L DS: Provider Date of admission: 04/29/17 15:04 Primary care physician: Mariely Roque MD Attending physician on admission: Mode Wu MD Consults: 04/29/17 16:20 Consult to Physician [CONS] Routine Comment: BP management in AAA pt Consulting Provider: Charlene Gracia Discharging clinician: Mode Wu MD <Emilie Enamorado - Last Filed: 05/01/17 13:45> Discharge Plan - Discharge Data Condition at Discharge: Stable Discharge Diet: advance to your usual diet Activity: increase activity as tolerated Hygiene: may shower Contact your physician if you experience:: fever over 101, pain uncontrolled by pain medications DS: Provider Expected date of discharge: 05/01/17
--- NOTE | 2017-05-01 10:14 | XRay Report ---
History is follow-up abdominal aortic aneurysm endograft There has been interval placement of an abdominal aortic endograft within prior abdominal aortic aneurysm Mild air present throughout small and large bowel without disproportionate small bowel dilatation or organomegaly seen Pelvic calcifications unchanged Impression: Interval placement of abdominal aortic endograft PROCEDURE INTERPRETED AT [facility] DEPARTMENT OF RADIOLOGY Final Report Signed by: Dr. Jennifer Luis
[2017-05-01 11:11] VITALS: BP 158/77
== END 2017-05-01 15:22 | disposition home or self-care (01) | DRG 269 ==
LOC: EDUNIT# → EDBD → N.ED 12:22 → N.EDINP 15:04 → N.ICU 15:33 → N.3E 04-30 17:52
PROVIDERS: ADMIT Surgery; ATTEND Surgery
PROC: IRERAAA (2017-04-30 08:10)

== ENCOUNTER 2019-12-26 19:14 | Inpatient (IN) ==
[2019-12-26 20:55] LABS: Partial Thromboplastin Time 29.9 SECS (20.8-36.0)
[2019-12-26 20:56] LABS: Basophils % 0.1 % (0.0-0.8); Eosinophils # 0.1 10*3/uL (0.0-0.87); Eosinophils % 1.1 % (0.00-10.9); Hematocrit 33.5 VOL% (42.0-52.0); Immature Granulocytes % 0.7 %; Immature Granulocytes Absolute 0.08 #; Lymphocytes # 1.5 10*3/uL (1.4-4.0); Lymphocytes % 13.2 % (21.2-54.2); Mean Corpuscular HGB Conc 28.7 GM/DL (32-36); Mean Corpuscular Volume 87.7 FL (87-102); Mean Platelet Volume 10.6 FL (9.6-12.0); Neutrophils % 75.9 % (38.7-73.9); Platelet Count 221 T/CUMM (130-400); Red Blood Count 3.82 MC/CUMM (3.8-5.5); Red Cell Distribution Width 16.8 % (9.3-17.3); White Blood Count 11.5 T/CUMM (4-12)
[2019-12-26 20:57] LABS: Alanine Aminotransferase 26 U/L (16-61); Albumin 3.1 G/DL (3.4-5.0); Alkaline Phosphatase 61 U/L (45-117); Aspartate Amino Transferase 14 U/L (0-37); Bilirubin,Total < 0.39 MG/DL (0.2-1.0); Blood Urea Nitrogen 21 MG/DL (7-18); Calcium 8.2 MG/DL (8.5-10.1); Estimated Glom Filtration Rate 67 ML/MIN; Glucose 89 MG/DL (74-106); Hemoglobin 9.6 GM/DL (14.0-18.0); Osmolality,Calculated 280.4 MOS/KG (273-304); PT Patient Result 21.2 SECS (9.6-12.2); Total Protein 6.1 G/DL (6.4-8.3)
[2019-12-26] MEDS ORDERED: BISACODYL 5 MG TABLET PO PRN (22:12)
[2019-12-26] MEDS ORDERED: oxyCODONE/ACETAMINOPHEN 5-325 MG TABLET PO PRN (22:12)
[2019-12-26] MEDS ORDERED: ALUMINUM/MAGNES/SIMETH MAX STR 30 ML UDCUP PO PRN (22:12)
[2019-12-26] MEDS ORDERED: ACETAMINOPHEN 325 MG TABLET PO PRN (22:12)
[2019-12-26] MEDS ORDERED: DEXTROSE 50% 25 GM/50 ML SYRINGE IV PRN (22:12)
[2019-12-26] MEDS ORDERED: ONDANSETRON 4 MG/2 ML VIAL IV PRN (22:12)
[2019-12-26] MEDS ORDERED: GLUCAGON 1 MG VIAL IM PRN (22:12)
[2019-12-26] MEDS ORDERED: ONDANSETRON ODT 4 MG TABLET PO PRN (22:18)
[2019-12-26] MEDS ORDERED: FUROSEMIDE 40 MG TABLET PO PRN (22:18)
[2019-12-26] MEDS ORDERED: LACTATED RINGERS 1,000 ML IV SCH (22:30)
[2019-12-26] MEDS: HEPARIN DRIP 25,000 UNITS/500 ML PREMIX IV SCH (23:00)
[2019-12-26 23:32] LABS: Apearance,Urine CLEAR (Clear); Bacteria,Urine Occasional /HPF (Few); Bilirubin,Urine Negative (Negative); Blood, Urine Moderate mg/dL (Negative); Glucose,Urine (UA) Negative (Negative); Ketones,Urine Negative (Negative); Mucus,Urine Occasional /LPF (Occasional); Nitrite,Urine Negative (Negative); Protein,Urine 30 MG/DL; RBC,Urine 21 /HPF (0-4); Urine Color Yellow (Yellow); Urine Specific Gravity 1.027 (1.001-1.035); Urine Urobilinogen < 2.0 EU/DL (0.2-1.0); WBC,Urine 5 /HPF (0-6)
[2019-12-27 00:17] LABS: Anisocytosis 1+; Hypochromasia Slight; Microcytosis 1+
[2019-12-27 00:18] LABS: Ovalocytes Slight; Platelet Estimate Normal; Polychromasia Slight
[2019-12-27 04:14] LABS: Basophils % 0.3 % (0.0-0.8); Eosinophils # 0.2 10*3/uL (0.0-0.87); Eosinophils % 1.9 % (0.00-10.9); Hematocrit 32.9 VOL% (42.0-52.0); Hemoglobin 9.7 GM/DL (14.0-18.0); Immature Granulocytes % 0.4 %; Immature Granulocytes Absolute 0.04 #; Lymphocytes # 2.2 10*3/uL (1.4-4.0); Lymphocytes % 22.2 % (21.2-54.2); Mean Corpuscular HGB Conc 29.5 GM/DL (32-36); Mean Corpuscular Volume 86.8 FL (87-102); Neutrophils % 65.2 % (38.7-73.9); Platelet Count 203 T/CUMM (130-400); Red Blood Count 3.79 MC/CUMM (3.8-5.5); Red Cell Distribution Width 16.8 % (9.3-17.3); White Blood Count 9.7 T/CUMM (4-12)
[2019-12-27 04:21] LABS: INR 1.9; PT Patient Result 20.2 SECS (9.6-12.2)
[2019-12-27 04:23] LABS: Calcium 8.4 MG/DL (8.5-10.1); Osmolality,Calculated 282.3 MOS/KG (273-304)
[2019-12-27 06:03] LABS: Platelet Estimate Adequate
[2019-12-27] MEDS: oxyCODONE/ACETAMINOPHEN 5-325 MG TABLET PO PRN ×2 (07:26→17:05)
[2019-12-27] MEDS ORDERED: carvediloL 12.5 MG TABLET PO SCH (08:00)
[2019-12-27] MEDS: INSULIN REGULAR 100 UNIT/ML SUBCUT SCH ×3 (08:37→17:07)
[2019-12-27] MEDS: MORPHINE ER 30 MG TABLET PO PRN ×2 (08:38→20:51)
[2019-12-27] MEDS: PANTOPRAZOLE 40 MG TABLET PO SCH (08:38)
[2019-12-27] MEDS: amLODIPine 5 MG TABLET PO SCH (08:39)
[2019-12-27] MEDS: ATORVASTATIN 40 MG TABLET PO SCH (08:39)
[2019-12-27] MEDS: GABAPENTIN 100 MG CAPSULE PO SCH ×2 (08:39→20:51)
[2019-12-27] MEDS: predniSONE 10 MG TABLET PO SCH (08:39)
[2019-12-27] MEDS ORDERED: PANTOPRAZOLE 40 MG TABLET PO SCH (09:00)
[2019-12-27] MEDS: HEPARIN DRIP 25,000 UNITS/500 ML PREMIX IV SCH (14:07)
[2019-12-27] MEDS: carvediloL 25 MG TABLET PO SCH (17:07)
[2019-12-28 05:36] LABS: INR 1.3
[2019-12-28] MEDS: oxyCODONE/ACETAMINOPHEN 5-325 MG TABLET PO PRN ×3 (09:09→22:27)
[2019-12-28] MEDS ORDERED: HEPARIN/NACL 0.9% 2 UNITS/ML 1,000 ML IV ONE (09:43)
[2019-12-28] MEDS ORDERED: DIAZEPAM 5 MG TABLET PO ONE (10:21)
[2019-12-28] MEDS ORDERED: SODIUM CHLORIDE 0.9% 1,000 ML IV SCH (10:30)
[2019-12-28] MEDS ORDERED: HEPARIN DRIP 25,000 UNITS/500 ML PREMIX IV SCH (10:30)
[2019-12-28] MEDS ORDERED: ALTEPLASE 24 MG in SODIUM CHLORIDE 0.9% 480 ML IV SCH (10:30)
[2019-12-28] MEDS: amLODIPine 5 MG TABLET PO SCH (10:34)
[2019-12-28] MEDS: carvediloL 25 MG TABLET PO SCH ×2 (10:35→16:26)
[2019-12-28 11:25] LABS: INR 1.2; PT Patient Result 13.1 SECS (9.6-12.2)
[2019-12-28 11:33] LABS: Partial Thromboplastin Time 63.6 SECS (20.8-36.0)
[2019-12-28] MEDS: predniSONE 10 MG TABLET PO SCH (11:45)
[2019-12-28] MEDS: GABAPENTIN 100 MG CAPSULE PO SCH ×2 (11:45→20:57)
[2019-12-28] MEDS: ATORVASTATIN 40 MG TABLET PO SCH (11:45)
[2019-12-28] MEDS: PANTOPRAZOLE 40 MG TABLET PO SCH (11:46)
[2019-12-28] MEDS ORDERED: MIDAZOLAM 2 MG/2 ML VIAL IV ONE ×2 (12:16→12:36)
[2019-12-28] MEDS ORDERED: fentaNYL 100 MCG/2 ML VIAL IV ONE ×2 (12:16→12:36)
[2019-12-28] MEDS: SODIUM CHLORIDE 0.45% 1,000 ML IV SCH (13:15)
[2019-12-28] MEDS: HEPARIN/NACL 0.9% 2 UNITS/ML 1,000 ML IV SCH (13:23)
[2019-12-28] MEDS: HEPARIN DRIP 25,000 UNITS/500 ML PREMIX IV SCH (13:50)
[2019-12-28] MEDS: SODIUM CHLORIDE 0.9% 1,000 ML IV SCH (14:45)
[2019-12-28] MEDS: methylPREDNISolone SOD SUC 40 MG/1 ML VIAL IV SCH (16:38)
[2019-12-28] MEDS ORDERED: KETOROLAC 30 MG/1 ML VIAL IV ONE (16:56)
[2019-12-28 17:07] LABS: INR 1.2; PT Patient Result 12.8 SECS (9.6-12.2)
[2019-12-28] MEDS: INSULIN LISPRO 100 UNIT/ML SUBCUT SCH ×2 (17:23→20:57)
[2019-12-28] MEDS: MORPHINE ER 30 MG TABLET PO PRN (20:15)
[2019-12-28 23:04] LABS: Partial Thromboplastin Time 54.5 SECS (20.8-36.0)
[2019-12-29] MEDS: HEPARIN DRIP 25,000 UNITS/500 ML PREMIX IV SCH ×3 (00:08→23:39)
[2019-12-29] MEDS: KETOROLAC 10 MG TABLET PO SCH ×4 (00:30→17:37)
[2019-12-29] MEDS: methylPREDNISolone SOD SUC 40 MG/1 ML VIAL IV SCH ×3 (00:31→16:35)
[2019-12-29] MEDS: MORPHINE ER 30 MG TABLET PO PRN ×2 (04:33→16:34)
[2019-12-29 04:44] LABS: Basophils % 0.1 % (0.0-0.8); Immature Granulocytes % 0.5 %; Immature Granulocytes Absolute 0.05 #; Lymphocytes # 0.6 10*3/uL (1.4-4.0); Mean Corpuscular HGB Conc 29.4 GM/DL (32-36); Mean Corpuscular Volume 85.4 FL (87-102); Mean Platelet Volume 10.8 FL (9.6-12.0); Monocytes % 1.3 % (1.7-12.7); Neutrophils % 92.1 % (38.7-73.9); Platelet Count 197 T/CUMM (130-400); Red Cell Distribution Width 15.9 % (9.3-17.3); White Blood Count 10.1 T/CUMM (4-12)
[2019-12-29 04:58] LABS: Calcium 8.7 MG/DL (8.5-10.1); Osmolality,Calculated 278.7 MOS/KG (273-304)
[2019-12-29 05:05] LABS: INR 1.1; PT Patient Result 11.9 SECS (9.6-12.2)
[2019-12-29 05:06] LABS: INR 1.1; PT Patient Result 11.9 SECS (9.6-12.2)
[2019-12-29 05:25] LABS: Hemoglobin 10.5 GM/DL (14.0-18.0)
[2019-12-29 05:38] LABS: Hypochromasia 1+; Lymphocytes 6 % (20-55); Segmented Neutrophils 94 % (50-85); Total Cells Counted 100
[2019-12-29 05:39] LABS: Microcytosis 1+; Ovalocytes Few; Platelet Estimate Adequate
[2019-12-29] MEDS: INSULIN LISPRO 100 UNIT/ML SUBCUT SCH ×4 (07:27→20:44)
[2019-12-29] MEDS: PANTOPRAZOLE 40 MG TABLET PO SCH (08:20)
[2019-12-29] MEDS: carvediloL 25 MG TABLET PO SCH ×2 (08:20→16:34)
[2019-12-29] MEDS: GABAPENTIN 100 MG CAPSULE PO SCH ×2 (08:20→20:45)
[2019-12-29] MEDS: ATORVASTATIN 40 MG TABLET PO SCH (08:21)
[2019-12-29] MEDS: amLODIPine 5 MG TABLET PO SCH (08:27)
[2019-12-29 11:37] LABS: Partial Thromboplastin Time 60.9 SECS (20.8-36.0)
[2019-12-29] MEDS: SODIUM CHLORIDE 0.45% 1,000 ML IV SCH (11:44)
[2019-12-29] MEDS: oxyCODONE/ACETAMINOPHEN 5-325 MG TABLET PO PRN ×2 (13:17→21:30)
[2019-12-29] MEDS: HEPARIN/NACL 0.9% 2 UNITS/ML 1,000 ML IV SCH (14:35)
[2019-12-29] MEDS: SODIUM CHLORIDE 0.9% 1,000 ML IV SCH (17:41)
[2019-12-29] MEDS: APIXABAN 5 MG TABLET PO SCH (20:45)
[2019-12-29 23:19] LABS: Partial Thromboplastin Time 50.7 SECS (20.8-36.0)
[2019-12-30] MEDS: KETOROLAC 10 MG TABLET PO SCH ×3 (00:54→11:42)
[2019-12-30] MEDS: methylPREDNISolone SOD SUC 40 MG/1 ML VIAL IV SCH ×2 (00:55→09:42)
[2019-12-30] MEDS ORDERED: HYDROmorphone 2 MG/1 ML VIAL IV ONE (05:05)
[2019-12-30] MEDS ORDERED: HYDROmorphone 2 MG/1 ML VIAL IM ONE ×2 (05:05→05:30)
[2019-12-30] MEDS: oxyCODONE/ACETAMINOPHEN 5-325 MG TABLET PO PRN (09:43)
[2019-12-30] MEDS: APIXABAN 5 MG TABLET PO SCH (09:45)
[2019-12-30] MEDS: ATORVASTATIN 40 MG TABLET PO SCH (09:45)
[2019-12-30] MEDS: carvediloL 25 MG TABLET PO SCH (09:45)
[2019-12-30] MEDS: PANTOPRAZOLE 40 MG TABLET PO SCH (09:45)
[2019-12-30] MEDS: GABAPENTIN 100 MG CAPSULE PO SCH (09:45)
[2019-12-30] MEDS: INSULIN LISPRO 100 UNIT/ML SUBCUT SCH (09:46)
[2019-12-30] MEDS: amLODIPine 5 MG TABLET PO SCH (09:46)
[2019-12-30 10:33] LABS: Basophils % 0.1 % (0.0-0.8); Hematocrit 32.5 VOL% (42.0-52.0); Hemoglobin 9.6 GM/DL (14.0-18.0); Immature Granulocytes % 1.5 %; Immature Granulocytes Absolute 0.23 #; Lymphocytes # 0.6 10*3/uL (1.4-4.0); Lymphocytes % 4.1 % (21.2-54.2); Mean Corpuscular HGB Conc 29.5 GM/DL (32-36); Mean Corpuscular Volume 86.7 FL (87-102); Mean Platelet Volume 10.5 FL (9.6-12.0); Monocytes % 3.9 % (1.7-12.7); Neutrophils % 90.4 % (38.7-73.9); Platelet Count 232 T/CUMM (130-400); Red Blood Count 3.75 MC/CUMM (3.8-5.5); Red Cell Distribution Width 16.1 % (9.3-17.3); White Blood Count 15.5 T/CUMM (4-12)
[2019-12-30 10:54] LABS: Alanine Aminotransferase 27 U/L (16-61); Albumin 3.2 G/DL (3.4-5.0); Alkaline Phosphatase 60 U/L (45-117); Aspartate Amino Transferase 14 U/L (0-37); Bilirubin,Total < 0.39 MG/DL (0.2-1.0); Blood Urea Nitrogen 33 MG/DL (7-18); Calcium 8.4 MG/DL (8.5-10.1); Estimated Glom Filtration Rate 55 ML/MIN; Glucose 167 MG/DL (74-106); Osmolality,Calculated 287.5 MOS/KG (273-304); Total Protein 6.6 G/DL (6.4-8.3)
[2019-12-30 10:54] LABS: Hypochromasia 1+; Lymphocytes 6 % (20-55); Microcytosis 1+; Platelet Estimate Adequate; Segmented Neutrophils 91 % (50-85); Total Cells Counted 100
[2019-12-30] MEDS: SODIUM CHLORIDE 0.45% 1,000 ML IV SCH (11:08)
[2019-12-30] MEDS ORDERED: oxyCODONE/ACETAMINOPHEN 5-325 MG TABLET PO PRN (11:30)
[2019-12-30] MEDS: MORPHINE ER 30 MG TABLET PO PRN (11:47)
[2019-12-30 12:52] LABS: Partial Thromboplastin Time 26.2 SECS (20.8-36.0)
[2019-12-30 14:06] LABS: DRVVT Screen Ratio 0.83 ratio (<1.20); INR 1.5 (0.9-1.1)
[2019-12-30 15:57] VITALS: BP 115/64
[2019-12-31 13:41] LABS: Phospholipid Ab IgM, S < 9.4 MPL
[2020-01-04 11:51] LABS: Reptilase Time, P 20.2 sec; Thrombin Time (Bovine), P 46.5 sec
== END 2019-12-30 16:25 | disposition home or self-care (01) | DRG 300 ==
LOC: EDBD → EDUNIT# → N.ED 19:14 → N.EDINP 22:12 → N.3E 23:57 → N.ICU 12-28 13:54 → N.3E 12-30 11:21
PROVIDERS: ADMIT Surgery; ATTEND Surgery
PROC: IRURORE (2019-12-29 14:10)

== ENCOUNTER 2020-12-19 21:12 | Inpatient (IN) ==
[2020-12-19] MEDS ORDERED: ETOMIDATE 20 MG/10 ML VIAL IV ONE (21:30)
[2020-12-19] MEDS ORDERED: ENOXAPARIN 60 MG/0.6 ML SYRINGE IV ONE (21:30)
[2020-12-19] MEDS ORDERED: VECURONIUM 10 MG VIAL IV ONE (21:30)
[2020-12-19] MEDS ORDERED: ENOXAPARIN 80 MG/0.8 ML SYRINGE SUBCUT STA (21:30)
[2020-12-19] MEDS ORDERED: ASPIRIN 300 MG SUPP RECTAL ONE (21:39)
[2020-12-19] MEDS ORDERED: ENOXAPARIN 120 MG/0.8 ML SYRINGE SUBCUT ONE (21:39)
[2020-12-19] MEDS ORDERED: MIDAZOLAM 2 MG/2 ML VIAL ONE (21:49)
[2020-12-19] MEDS ORDERED: fentaNYL 100 MCG/2 ML VIAL ONE (21:49)
[2020-12-19] MEDS ORDERED: LIDOCAINE 1% 20 ML VIAL ONE (21:49)
[2020-12-19 22:13] LABS: INR 1.1; PT Patient Result 11.4 SECS (9.8-11.9)
[2020-12-19 22:15] LABS: Bacteria,Urine Many /HPF (Few); Bilirubin,Urine Negative (Negative); Blood, Urine Moderate mg/dL (Negative); Glucose,Urine (UA) 50 mg/dL (Negative); Ketones,Urine Negative (Negative); Mucus,Urine Moderate /LPF (Occasional); Nitrite,Urine Negative (Negative); Protein,Urine >=500 MG/DL; RBC,Urine 270 /HPF (0-4); Sperm,Urine Many /HPF (Negative); Squamous Epithelial Cell,Urine Occasional /HPF (0-10); Urine Appearance Slightly Hazy (Clear); Urine Color Yellow (Yellow); Urine Specific Gravity 1.014 (1.001-1.035); Urine Urobilinogen < 2.0 EU/DL (0.2-1.0); WBC,Urine 4 /HPF (0-6)
[2020-12-19] MEDS ORDERED: hydrALAZINE 20 MG/1 ML VIAL ONE (22:18)
[2020-12-19 22:19] LABS: Basophils % 0.2 % (0.0-0.8); Eosinophils # 0.1 10*3/uL (0.0-0.87); Eosinophils % 0.8 % (0.00-10.9); Hematocrit 39.9 VOL% (42.0-52.0); Hemoglobin 11.4 GM/DL (14.0-18.0); Immature Granulocytes % 2.4 %; Lymphocytes # 1.4 10*3/uL (1.4-4.0); Lymphocytes % 8.5 % (21.2-54.2); Mean Corpuscular HGB Conc 28.6 GM/DL (32-36); Mean Platelet Volume 11.1 FL (9.6-12.0); Monocytes % 3.6 % (1.7-12.7); Neutrophils % 84.5 % (38.7-73.9); Platelet Count 299 T/CUMM (130-400); Red Blood Count 4.75 MC/CUMM (3.8-5.5); Red Cell Distribution Width 16.7 % (9.3-17.3); White Blood Count 16.5 T/CUMM (4-12)
[2020-12-19] MEDS ORDERED: ASPIRIN 300 MG SUPP RECTAL STA (22:22)
[2020-12-19] MEDS ORDERED: TIROFIBAN 5,000 MCG/100 ML PREMIX IV ONE (22:33)
[2020-12-19] MEDS ORDERED: NITROGLYCERIN DRIP 50 MG/250 ML BOTTLE IV ONE (22:37)
[2020-12-19] MEDS ORDERED: TIROFIBAN 5,000 MCG/100 ML PREMIX IV SCH (22:41)
[2020-12-19 22:50] LABS: Macrocytosis Slight; Ovalocytes 1+; Poikilocytosis 1+
[2020-12-19 22:51] LABS: Anisocytosis 1+; Burr Cells Few; Elliptocytes Few; Microcytosis 1+
[2020-12-19 22:53] LABS: Platelet Estimate Adequate
[2020-12-19] MEDS ORDERED: TICAGRELOR 90 MG TABLET ONE (22:57)
[2020-12-19 23:07] LABS: Barbiturates Screen,Urine Negative (Negative); Benzodiazepines Screen,Urine Negative (Negative); Cannabinoid Screen,Urine Negative (Negative); Opiate Screen,Urine Positive (Negative); Phencyclidine Screen,Urine Negative (Negative)
[2020-12-19 23:16] LABS: Alanine Aminotransferase 105 U/L (16-61); Albumin 3.2 G/DL (3.4-5.0); Alkaline Phosphatase 107 U/L (45-117); Aspartate Amino Transferase 121 U/L (0-37); Blood Urea Nitrogen 19 MG/DL (7-18); CKMB % 8.3 %; Calcium 8.2 MG/DL (8.5-10.1); Carbon Dioxide 24 MMOL/L (21-32); Glucose 234 MG/DL (74-106); Osmolality,Calculated 282.8 MOS/KG (273-304); Sodium 137 MMOL/L (136-145); Total Protein 7.3 G/DL (5.0-7.5)
[2020-12-19 23:17] LABS: Estimated Glom Filtration Rate 56 ML/MIN
[2020-12-19 23:21] LABS: Potassium 6.7 MMOL/L (3.5-5.1)
[2020-12-19] MEDS ORDERED: DEXTROSE 50% 25 GM/50 ML VIAL IV PRN (23:26)
[2020-12-19] MEDS ORDERED: GLUCAGON 1 MG VIAL IM PRN (23:26)
[2020-12-19] MEDS ORDERED: SODIUM CHLORIDE 0.9% 1,000 ML IV SCH (23:30)
[2020-12-20 00:22] LABS: ABG Base Excess -3.7 MMOL/L (-2.5-2.5); ABG HCO3 22.8 MMOL/L (20-26); ABG Oxygen Saturation 99.5 % (95-100); ABG PCO2 47.7 MM HG (35-48); ABG PH 7.298 (7.35-7.45); ABG PO2 382.3 MM HG (80-95); ABG TCO2 24.3 MMOL/L (23-27)
[2020-12-20] MEDS ORDERED: SODIUM CHLORIDE 0.9% 500 ML IV ONE ×3 (00:35→09:00)
[2020-12-20 00:59] LABS: CKMB % 5.5 %
[2020-12-20 01:00] LABS: Troponin I 51.7 NG/ML (0.00-0.045)
[2020-12-20 04:47] LABS: ABG Base Excess -2.5 MMOL/L (-2.5-2.5); ABG HCO3 22.3 MMOL/L (20-26); ABG Oxygen Saturation 99.5 % (95-100); ABG PCO2 47.6 MM HG (35-48)
[2020-12-20 04:54] LABS: Basophils % 0.2 % (0.0-0.8); Eosinophils # 0.1 10*3/uL (0.0-0.87); Eosinophils % 0.7 % (0.00-10.9); Hematocrit 32.2 VOL% (42.0-52.0); Hemoglobin 9.4 GM/DL (14.0-18.0); Immature Granulocytes % 0.6 %; Immature Granulocytes Absolute 0.06 #; Lymphocytes # 1.2 10*3/uL (1.4-4.0); Lymphocytes % 11.9 % (21.2-54.2); Mean Corpuscular HGB Conc 29.2 GM/DL (32-36); Mean Corpuscular Volume 82.8 FL (87-102); Mean Platelet Volume 10.3 FL (9.6-12.0); Monocytes % 10.3 % (1.7-12.7); Neutrophils % 76.3 % (38.7-73.9); Platelet Count 222 T/CUMM (130-400); Red Blood Count 3.89 MC/CUMM (3.8-5.5); Red Cell Distribution Width 16.8 % (9.3-17.3); White Blood Count 10.4 T/CUMM (4-12)
[2020-12-20 05:11] LABS: Alanine Aminotransferase 103 U/L (16-61); Albumin 2.5 G/DL (3.4-5.0); Alkaline Phosphatase 86 U/L (45-117); Aspartate Amino Transferase 220 U/L (0-37); Bilirubin,Total < 0.39 MG/DL (0.2-1.0); Blood Urea Nitrogen 25 MG/DL (7-18); Calcium 7.6 MG/DL (8.5-10.1); Carbon Dioxide 24 MMOL/L (21-32); Estimated Glom Filtration Rate 60 ML/MIN; Glucose 127 MG/DL (74-106); HDL Cholesterol 30 MG/DL (40-60); Osmolality,Calculated 288.1 MOS/KG (273-304); Potassium 3.8 MMOL/L (3.5-5.1); Sodium 142 MMOL/L (136-145); Total Protein 5.9 G/DL (5.0-7.5); Triglycerides 169 MG/DL (2-150); VLDL CHOLESTEROL 33.8 MG/DL
[2020-12-20 05:26] LABS: CKMB % 6.6 %
[2020-12-20 05:27] LABS: Troponin I 83.2 NG/ML (0.00-0.045)
[2020-12-20] MEDS: MORPHINE 4 MG/1 ML VIAL IV PRN (05:49)
[2020-12-20] MEDS: PHENYLEPHRINE DRIP 40 MG/250 ML PREMIX IV PRN ×2 (06:10→11:40)
[2020-12-20] MEDS: INSULIN REGULAR 100 UNIT/ML SUBCUT SCH ×4 (07:32→23:45)
[2020-12-20 08:35] LABS: Bilirubin,Urine Negative (Negative); Blood, Urine Large mg/dL (Negative); Glucose,Urine (UA) Negative (Negative); Ketones,Urine Negative (Negative); Mucus,Urine Occasional /LPF (Occasional); Nitrite,Urine Negative (Negative); Protein,Urine 100 MG/DL; RBC,Urine 358 /HPF (0-4); Urine Appearance CLEAR (Clear); Urine Color Yellow (Yellow); Urine Specific Gravity > 1.060 (1.001-1.035); WBC,Urine 38 /HPF (0-6)
[2020-12-20 09:03] LABS: CKMB % 6.7 %
[2020-12-20] MEDS: TICAGRELOR 90 MG TABLET PO SCH ×2 (09:15→20:01)
[2020-12-20] MEDS: APIXABAN 5 MG TABLET PO SCH ×2 (09:15→20:01)
[2020-12-20] MEDS: predniSONE 5 MG TABLET PO SCH (09:15)
[2020-12-20] MEDS: NICOTINE 21 MG/24 HR PATCH TRANSDERM SCH (09:15)
[2020-12-20] MEDS: ASPIRIN CHEW 81 MG TABLET PO SCH (09:15)
[2020-12-20] MEDS: HYDROCORTISONE 100 MG VIAL IV SCH ×3 (09:15→23:45)
[2020-12-20] MEDS: PANTOPRAZOLE 40 MG VIAL IV SCH (09:15)
[2020-12-20] MEDS: HEPARIN/NACL 0.9% 2 UNITS/ML 500 ML IV SCH (09:18)
[2020-12-20] MEDS ORDERED: MAGNESIUM SULF RIDER 2 GM in PREMIX 1 EACH IV PRN (09:53)
[2020-12-20] MEDS ORDERED: MAGNESIUM SULF RIDER 50 ML IV ONE (09:54)
[2020-12-20] MEDS ORDERED: SODIUM CHLORIDE 0.9% 500 ML IV SCH (10:00)
[2020-12-20] MEDS: SODIUM CHLORIDE 0.9% 1,000 ML IV SCH ×2 (10:37→21:45)
[2020-12-20] MEDS: fentaNYL INJ 1,250 MCG in SODIUM CHLORIDE 0.9% 225 ML IV PRN ×3 (11:32→19:24)
[2020-12-20] MEDS: SKIN HEALING OINT (AQUAPHOR) 50 GM TUBE TOP SCH (16:30)
[2020-12-21] MEDS: fentaNYL INJ 1,250 MCG in SODIUM CHLORIDE 0.9% 225 ML IV PRN (02:20)
[2020-12-21 04:54] LABS: ABG HCO3 19.7 MMOL/L (20-26); ABG Oxygen Saturation 97.7 % (95-100); ABG PCO2 39.3 MM HG (35-48); ABG PH 7.317 (7.35-7.45); ABG PO2 111.2 MM HG (80-95); ABG TCO2 20.9 MMOL/L (23-27)
[2020-12-21] MEDS: PHENYLEPHRINE DRIP 40 MG/250 ML PREMIX IV PRN (04:58)
[2020-12-21 05:03] LABS: Basophils % 0.1 % (0.0-0.8); Hematocrit 29.4 VOL% (42.0-52.0); Hemoglobin 8.6 GM/DL (14.0-18.0); Immature Granulocytes Absolute 0.11 #; Lymphocytes # 0.9 10*3/uL (1.4-4.0); Lymphocytes % 7.8 % (21.2-54.2); Mean Corpuscular HGB Conc 29.3 GM/DL (32-36); Mean Corpuscular Volume 82.8 FL (87-102); Mean Platelet Volume 10.7 FL (9.6-12.0); Monocytes % 6.6 % (1.7-12.7); Neutrophils % 84.5 % (38.7-73.9); Platelet Count 206 T/CUMM (130-400); Red Blood Count 3.55 MC/CUMM (3.8-5.5); Red Cell Distribution Width 17.1 % (9.3-17.3); White Blood Count 11.5 T/CUMM (4-12)
[2020-12-21 05:21] LABS: Calcium 7.7 MG/DL (8.5-10.1); Osmolality,Calculated 286.5 MOS/KG (273-304); Potassium 4.8 MMOL/L (3.5-5.1)
[2020-12-21 05:26] LABS: CKMB % 2.7 %
[2020-12-21] MEDS: INSULIN REGULAR 100 UNIT/ML SUBCUT SCH ×4 (06:21→20:02)
[2020-12-21] MEDS: SODIUM CHLORIDE 0.9% 1,000 ML IV SCH (08:20)
[2020-12-21] MEDS: ASPIRIN CHEW 81 MG TABLET PO SCH (08:23)
[2020-12-21] MEDS: TICAGRELOR 90 MG TABLET PO SCH ×2 (08:23→20:01)
[2020-12-21] MEDS: APIXABAN 5 MG TABLET PO SCH ×2 (08:23→20:02)
[2020-12-21] MEDS: predniSONE 5 MG TABLET PO SCH (08:23)
[2020-12-21] MEDS: NICOTINE 21 MG/24 HR PATCH TRANSDERM SCH (08:24)
[2020-12-21] MEDS: PANTOPRAZOLE 40 MG VIAL IV SCH (08:27)
[2020-12-21] MEDS: HYDROCORTISONE 100 MG VIAL IV SCH ×3 (08:31→14:06)
[2020-12-21] MEDS: SKIN HEALING OINT (AQUAPHOR) 50 GM TUBE TOP SCH (08:31)
[2020-12-21] MEDS ORDERED: oxyCODONE/ACETAMINOPHEN 5-325 MG TABLET PO PRN (09:17)
[2020-12-21 09:21] LABS: ABG Base Excess -3.9 MMOL/L (-2.5-2.5); ABG HCO3 21.1 MMOL/L (20-26); ABG Oxygen Saturation 95.2 % (95-100); ABG PCO2 41.7 MM HG (35-48); ABG PH 7.327 (7.35-7.45); ABG PO2 81.6 MM HG (80-95); ABG TCO2 20.3 MMOL/L (23-27)
[2020-12-21] MEDS: cefTRIAXone 1,000 MG in SYRINGE 1 EACH IV SCH (09:22)
[2020-12-21] MEDS: carvediloL 25 MG TABLET PO SCH ×2 (09:22→20:01)
[2020-12-21] MEDS: HEPARIN/NACL 0.9% 2 UNITS/ML 500 ML IV SCH (09:26)
[2020-12-21] MEDS: MORPHINE ER 30 MG TABLET PO SCH ×2 (10:09→20:02)
[2020-12-21] MEDS ORDERED: ALBUTEROL/IPRATROPIUM 3 ML NEB RESP TX PRN (10:11)
[2020-12-21] MEDS: ALBUTEROL/IPRATROPIUM 3 ML NEB RESP TX SCH ×4 (10:19→19:46)
[2020-12-21] MEDS: MORPHINE 4 MG/1 ML VIAL IV PRN ×2 (17:06→22:15)
[2020-12-22] MEDS: oxyCODONE/ACETAMINOPHEN 5-325 MG TABLET PO PRN ×4 (01:08→22:10)
[2020-12-22] MEDS: ALBUTEROL/IPRATROPIUM 3 ML NEB RESP TX SCH ×5 (01:27→19:05)
[2020-12-22 06:17] LABS: Calcium 8.2 MG/DL (8.5-10.1); Osmolality,Calculated 285.4 MOS/KG (273-304); Potassium 4.4 MMOL/L (3.5-5.1)
[2020-12-22 06:22] LABS: Albumin 2.5 G/DL (3.4-5.0); Bilirubin,Direct 0.13 MG/DL (0.0-0.20); Bilirubin,Total 1.1 MG/DL (0.2-1.0); Total Protein 5.5 G/DL (5.0-7.5)
[2020-12-22 06:34] LABS: Basophils % 0.1 % (0.0-0.8); Eosinophils # 0.1 10*3/uL (0.0-0.87); Eosinophils % 0.7 % (0.00-10.9); Hematocrit 30.1 VOL% (42.0-52.0); Immature Granulocytes % 0.7 %; Lymphocytes # 0.7 10*3/uL (1.4-4.0); Lymphocytes % 4.9 % (21.2-54.2); Mean Corpuscular HGB Conc 28.2 GM/DL (32-36); Mean Corpuscular Volume 84.1 FL (87-102); Mean Platelet Volume 10.9 FL (9.6-12.0); Monocytes % 9.7 % (1.7-12.7); Neutrophils % 83.9 % (38.7-73.9); Platelet Count 205 T/CUMM (130-400); Red Blood Count 3.58 MC/CUMM (3.8-5.5); Red Cell Distribution Width 17.2 % (9.3-17.3); White Blood Count 13.4 T/CUMM (4-12)
[2020-12-22 06:35] LABS: Hemoglobin 8.5 GM/DL (14.0-18.0)
[2020-12-22 06:39] LABS: Band Neutrophils 1 % (0-10); Hypochromasia 1+; Lymphocytes 9 % (20-55); Microcytosis 1+; Platelet Estimate Adequate; Segmented Neutrophils 84 % (50-85); Total Cells Counted 100
[2020-12-22] MEDS: INSULIN REGULAR 100 UNIT/ML SUBCUT SCH ×4 (07:16→20:05)
[2020-12-22] MEDS ORDERED: PANTOPRAZOLE 40 MG TABLET PO ONE (08:11)
[2020-12-22] MEDS: MORPHINE ER 30 MG TABLET PO SCH ×2 (08:23→20:46)
[2020-12-22] MEDS: carvediloL 25 MG TABLET PO SCH ×2 (08:23→20:46)
[2020-12-22] MEDS: TICAGRELOR 90 MG TABLET PO SCH ×2 (08:23→20:46)
[2020-12-22] MEDS: predniSONE 5 MG TABLET PO SCH (08:23)
[2020-12-22] MEDS: APIXABAN 5 MG TABLET PO SCH ×2 (08:23→20:46)
[2020-12-22] MEDS: ASPIRIN CHEW 81 MG TABLET PO SCH (08:23)
[2020-12-22] MEDS: NICOTINE 21 MG/24 HR PATCH TRANSDERM SCH (08:24)
[2020-12-22] MEDS: cefTRIAXone 1,000 MG in SYRINGE 1 EACH IV SCH ×2 (08:24→15:36)
[2020-12-22] MEDS: SKIN HEALING OINT (AQUAPHOR) 50 GM TUBE TOP SCH (08:26)
[2020-12-22] MEDS: PANTOPRAZOLE 40 MG TABLET PO SCH (08:31)
[2020-12-22] MEDS: MORPHINE 4 MG/1 ML VIAL IV PRN ×2 (09:50→19:30)
[2020-12-22] MEDS: HYDROCORTISONE 100 MG VIAL IV SCH ×2 (11:09→18:06)
[2020-12-23] MEDS: MORPHINE 4 MG/1 ML VIAL IV PRN ×4 (00:04→18:00)
[2020-12-23] MEDS: ALBUTEROL/IPRATROPIUM 3 ML NEB RESP TX SCH ×5 (01:20→23:50)
[2020-12-23] MEDS: HYDROCORTISONE 100 MG VIAL IV SCH (02:46)
[2020-12-23] MEDS: oxyCODONE/ACETAMINOPHEN 5-325 MG TABLET PO PRN ×2 (04:21→15:29)
[2020-12-23 07:16] LABS: Basophils % 0.2 % (0.0-0.8); Eosinophils # 0.1 10*3/uL (0.0-0.87); Eosinophils % 0.9 % (0.00-10.9); Hematocrit 28.6 VOL% (42.0-52.0); Hemoglobin 8.4 GM/DL (14.0-18.0); Immature Granulocytes % 1.3 %; Immature Granulocytes Absolute 0.14 #; Lymphocytes # 0.6 10*3/uL (1.4-4.0); Lymphocytes % 5.6 % (21.2-54.2); Mean Corpuscular HGB Conc 29.4 GM/DL (32-36); Mean Corpuscular Volume 82.4 FL (87-102); Mean Platelet Volume 10.5 FL (9.6-12.0); Monocytes % 9.1 % (1.7-12.7); Neutrophils % 82.9 % (38.7-73.9); Platelet Count 212 T/CUMM (130-400); Red Blood Count 3.47 MC/CUMM (3.8-5.5); Red Cell Distribution Width 17.1 % (9.3-17.3); White Blood Count 10.8 T/CUMM (4-12)
[2020-12-23] MEDS: INSULIN REGULAR 100 UNIT/ML SUBCUT SCH ×4 (07:38→21:42)
[2020-12-23 07:46] LABS: Calcium 8.2 MG/DL (8.5-10.1); Osmolality,Calculated 285.3 MOS/KG (273-304); Potassium 3.9 MMOL/L (3.5-5.1)
[2020-12-23] MEDS: ASPIRIN CHEW 81 MG TABLET PO SCH (08:28)
[2020-12-23] MEDS: carvediloL 25 MG TABLET PO SCH ×2 (08:28→21:41)
[2020-12-23] MEDS: SKIN HEALING OINT (AQUAPHOR) 50 GM TUBE TOP SCH (08:28)
[2020-12-23] MEDS: predniSONE 5 MG TABLET PO SCH (08:28)
[2020-12-23] MEDS: MORPHINE ER 30 MG TABLET PO SCH ×2 (08:28→21:41)
[2020-12-23] MEDS: TICAGRELOR 90 MG TABLET PO SCH ×2 (08:28→21:41)
[2020-12-23] MEDS: APIXABAN 5 MG TABLET PO SCH ×2 (08:28→21:41)
[2020-12-23] MEDS: NICOTINE 21 MG/24 HR PATCH TRANSDERM SCH (08:29)
[2020-12-23] MEDS: PANTOPRAZOLE 40 MG TABLET PO SCH (08:29)
[2020-12-23] MEDS: amLODIPine 5 MG TABLET PO SCH (08:29)
[2020-12-23] MEDS: cefTRIAXone 1,000 MG in SYRINGE 1 EACH IV SCH (15:11)
[2020-12-23] MEDS: DOCUSATE SODIUM 100 MG CAPSULE PO SCH ×2 (15:27→21:41)
[2020-12-23] MEDS: LACTULOSE 20 GM/30 ML UDCUP PO SCH ×2 (15:27→21:41)
[2020-12-23] MEDS: POLYETHYLENE GLYCOL POWDER 17 GM PACK PO SCH ×2 (15:29→21:42)
[2020-12-24] MEDS: MORPHINE 4 MG/1 ML VIAL IV PRN ×3 (01:29→16:55)
[2020-12-24] MEDS ORDERED: ONDANSETRON 4 MG/2 ML VIAL IV PRN (02:56)
[2020-12-24 05:33] LABS: Basophils % 0.2 % (0.0-0.8); Eosinophils # 0.2 10*3/uL (0.0-0.87); Eosinophils % 2.6 % (0.00-10.9); Hematocrit 31.3 VOL% (42.0-52.0); Hemoglobin 9.1 GM/DL (14.0-18.0); Immature Granulocytes % 0.7 %; Immature Granulocytes Absolute 0.06 #; Lymphocytes # 0.7 10*3/uL (1.4-4.0); Lymphocytes % 7.6 % (21.2-54.2); Mean Corpuscular HGB Conc 29.1 GM/DL (32-36); Mean Corpuscular Volume 82.6 FL (87-102); Mean Platelet Volume 10.4 FL (9.6-12.0); Monocytes % 10.3 % (1.7-12.7); Neutrophils % 78.6 % (38.7-73.9); Platelet Count 235 T/CUMM (130-400); Red Blood Count 3.79 MC/CUMM (3.8-5.5); Red Cell Distribution Width 17.1 % (9.3-17.3); White Blood Count 9.2 T/CUMM (4-12)
[2020-12-24] MEDS: oxyCODONE/ACETAMINOPHEN 5-325 MG TABLET PO PRN ×3 (05:42→23:53)
[2020-12-24 05:48] LABS: Calcium 8.3 MG/DL (8.5-10.1); Osmolality,Calculated 286.1 MOS/KG (273-304); Potassium 3.6 MMOL/L (3.5-5.1)
[2020-12-24 06:22] LABS: Albumin 2.5 G/DL (3.4-5.0); Bilirubin,Direct 0.14 MG/DL (0.0-0.20); Bilirubin,Indirect 0.5 MG/DL (0.0-1.0); Bilirubin,Total 0.6 MG/DL (0.2-1.0); Total Protein 6.3 G/DL (5.0-7.5)
[2020-12-24] MEDS: ALBUTEROL/IPRATROPIUM 3 ML NEB RESP TX SCH ×3 (08:15→20:21)
[2020-12-24] MEDS: POLYETHYLENE GLYCOL POWDER 17 GM PACK PO SCH ×3 (08:43→20:51)
[2020-12-24] MEDS: TICAGRELOR 90 MG TABLET PO SCH ×2 (08:43→20:50)
[2020-12-24] MEDS: PANTOPRAZOLE 40 MG TABLET PO SCH (08:43)
[2020-12-24] MEDS: ASPIRIN CHEW 81 MG TABLET PO SCH (08:43)
[2020-12-24] MEDS: predniSONE 5 MG TABLET PO SCH (08:43)
[2020-12-24] MEDS: DOCUSATE SODIUM 100 MG CAPSULE PO SCH ×2 (08:43→20:50)
[2020-12-24] MEDS: APIXABAN 5 MG TABLET PO SCH ×2 (08:43→20:50)
[2020-12-24] MEDS: LACTULOSE 20 GM/30 ML UDCUP PO SCH ×2 (08:43→20:50)
[2020-12-24] MEDS: carvediloL 25 MG TABLET PO SCH ×2 (08:44→20:50)
[2020-12-24] MEDS: amLODIPine 5 MG TABLET PO SCH (08:44)
[2020-12-24] MEDS: MORPHINE ER 30 MG TABLET PO SCH ×2 (08:46→20:50)
[2020-12-24] MEDS: SKIN HEALING OINT (AQUAPHOR) 50 GM TUBE TOP SCH (08:46)
[2020-12-24] MEDS: INSULIN REGULAR 100 UNIT/ML SUBCUT SCH ×4 (08:48→20:50)
[2020-12-24] MEDS: NICOTINE 21 MG/24 HR PATCH TRANSDERM SCH (08:49)
[2020-12-24] MEDS: cefTRIAXone 1,000 MG in SYRINGE 1 EACH IV SCH (14:59)
[2020-12-25] MEDS: ALBUTEROL/IPRATROPIUM 3 ML NEB RESP TX SCH ×4 (03:08→19:46)
[2020-12-25 06:24] LABS: Basophils % 0.2 % (0.0-0.8); Eosinophils # 0.4 10*3/uL (0.0-0.87); Eosinophils % 4.5 % (0.00-10.9); Hematocrit 30.7 VOL% (42.0-52.0); Hemoglobin 9.1 GM/DL (14.0-18.0); Immature Granulocytes % 0.6 %; Immature Granulocytes Absolute 0.05 #; Lymphocytes # 0.8 10*3/uL (1.4-4.0); Mean Corpuscular HGB Conc 29.6 GM/DL (32-36); Mean Corpuscular Volume 82.5 FL (87-102); Monocytes % 11.2 % (1.7-12.7); Neutrophils % 74.5 % (38.7-73.9); Platelet Count 253 T/CUMM (130-400); Red Blood Count 3.72 MC/CUMM (3.8-5.5); Red Cell Distribution Width 17.2 % (9.3-17.3); White Blood Count 8.5 T/CUMM (4-12)
[2020-12-25 06:31] LABS: Calcium 8.2 MG/DL (8.5-10.1); Osmolality,Calculated 284.3 MOS/KG (273-304); Potassium 4.2 MMOL/L (3.5-5.1)
[2020-12-25] MEDS: oxyCODONE/ACETAMINOPHEN 5-325 MG TABLET PO PRN ×2 (07:39→14:25)
[2020-12-25] MEDS: INSULIN REGULAR 100 UNIT/ML SUBCUT SCH ×4 (07:58→20:54)
[2020-12-25] MEDS: amLODIPine 5 MG TABLET PO SCH (08:50)
[2020-12-25] MEDS: ASPIRIN CHEW 81 MG TABLET PO SCH (08:50)
[2020-12-25] MEDS: predniSONE 5 MG TABLET PO SCH (08:50)
[2020-12-25] MEDS: TICAGRELOR 90 MG TABLET PO SCH ×2 (08:50→20:53)
[2020-12-25] MEDS: POLYETHYLENE GLYCOL POWDER 17 GM PACK PO SCH ×3 (08:50→20:54)
[2020-12-25] MEDS: APIXABAN 5 MG TABLET PO SCH ×2 (08:50→20:54)
[2020-12-25] MEDS: carvediloL 25 MG TABLET PO SCH ×2 (08:50→20:53)
[2020-12-25] MEDS: PANTOPRAZOLE 40 MG TABLET PO SCH (08:50)
[2020-12-25] MEDS: DOCUSATE SODIUM 100 MG CAPSULE PO SCH ×2 (08:50→20:54)
[2020-12-25] MEDS: LACTULOSE 20 GM/30 ML UDCUP PO SCH ×2 (08:51→20:54)
[2020-12-25] MEDS: SKIN HEALING OINT (AQUAPHOR) 50 GM TUBE TOP SCH (08:51)
[2020-12-25] MEDS: NICOTINE 21 MG/24 HR PATCH TRANSDERM SCH (08:59)
[2020-12-25] MEDS: MORPHINE ER 30 MG TABLET PO SCH ×2 (09:00→20:53)
[2020-12-25] MEDS: cefTRIAXone 1,000 MG in SYRINGE 1 EACH IV SCH (14:25)
[2020-12-25] MEDS: MORPHINE 4 MG/1 ML VIAL IV PRN (17:14)
[2020-12-26] MEDS: ALBUTEROL/IPRATROPIUM 3 ML NEB RESP TX SCH ×4 (01:32→19:15)
[2020-12-26] MEDS: MORPHINE 4 MG/1 ML VIAL IV PRN (05:10)
[2020-12-26 06:12] LABS: Basophils % 0.4 % (0.0-0.8); Eosinophils # 0.4 10*3/uL (0.0-0.87); Eosinophils % 4.9 % (0.00-10.9); Hematocrit 28.2 VOL% (42.0-52.0); Hemoglobin 8.1 GM/DL (14.0-18.0); Immature Granulocytes % 0.8 %; Immature Granulocytes Absolute 0.06 #; Lymphocytes # 0.9 10*3/uL (1.4-4.0); Lymphocytes % 10.9 % (21.2-54.2); Mean Corpuscular HGB Conc 28.7 GM/DL (32-36); Mean Corpuscular Volume 82.5 FL (87-102); Mean Platelet Volume 10.8 FL (9.6-12.0); Platelet Count 260 T/CUMM (130-400); Red Blood Count 3.42 MC/CUMM (3.8-5.5); Red Cell Distribution Width 17.1 % (9.3-17.3); White Blood Count 7.8 T/CUMM (4-12)
[2020-12-26 06:14] LABS: Calcium 8.3 MG/DL (8.5-10.1); Osmolality,Calculated 286.1 MOS/KG (273-304)
[2020-12-26] MEDS ORDERED: KETOROLAC 30 MG/1 ML VIAL IV ONE (08:24)
[2020-12-26] MEDS: INSULIN REGULAR 100 UNIT/ML SUBCUT SCH ×4 (08:28→21:58)
[2020-12-26 09:06] LABS: % Iron Saturation 9.6 % (18-50)
[2020-12-26 09:41] LABS: Folate 6.3 NG/ML (5.38-24.0)
[2020-12-26] MEDS: MORPHINE ER 30 MG TABLET PO SCH ×2 (10:14→21:58)
[2020-12-26] MEDS: amLODIPine 5 MG TABLET PO SCH (10:14)
[2020-12-26] MEDS: carvediloL 25 MG TABLET PO SCH ×2 (10:14→21:58)
[2020-12-26] MEDS: predniSONE 5 MG TABLET PO SCH (10:14)
[2020-12-26] MEDS: TICAGRELOR 90 MG TABLET PO SCH ×2 (10:14→21:58)
[2020-12-26] MEDS: ASPIRIN CHEW 81 MG TABLET PO SCH (10:14)
[2020-12-26] MEDS: PANTOPRAZOLE 40 MG TABLET PO SCH (10:14)
[2020-12-26] MEDS: DOCUSATE SODIUM 100 MG CAPSULE PO SCH ×2 (10:15→21:58)
[2020-12-26] MEDS: APIXABAN 5 MG TABLET PO SCH ×2 (10:15→21:58)
[2020-12-26] MEDS: POLYETHYLENE GLYCOL POWDER 17 GM PACK PO SCH ×3 (10:16→21:58)
[2020-12-26] MEDS: NICOTINE 21 MG/24 HR PATCH TRANSDERM SCH (10:16)
[2020-12-26] MEDS: SKIN HEALING OINT (AQUAPHOR) 50 GM TUBE TOP SCH (10:17)
[2020-12-26] MEDS: LACTULOSE 20 GM/30 ML UDCUP PO SCH ×2 (10:17→21:58)
[2020-12-26] MEDS ORDERED: amLODIPine 5 MG TABLET PO ONE (11:55)
[2020-12-26] MEDS ORDERED: FUROSEMIDE 40 MG/4 ML VIAL IV ONE (11:56)
[2020-12-26] MEDS: oxyCODONE/ACETAMINOPHEN 5-325 MG TABLET PO PRN (13:56)
[2020-12-26] MEDS: cefTRIAXone 1,000 MG in SYRINGE 1 EACH IV SCH (15:33)
[2020-12-26] MEDS ORDERED: ROPIVACAINE 0.5% 30 ML VIAL NERVEBLOCK ONE (15:40)
[2020-12-26] MEDS ORDERED: TRIAMCINOLONE ACETONIDE 40 MG/1 ML VIAL IM ONE (15:45)
[2020-12-26] MEDS ORDERED: ROSUVASTATIN 20 MG TABLET PO SCH (21:00)
[2020-12-26] MEDS: ASCORBIC ACID 500 MG TABLET PO SCH (21:59)
[2020-12-27] MEDS: ALBUTEROL/IPRATROPIUM 3 ML NEB RESP TX SCH ×3 (00:28→13:34)
[2020-12-27 05:45] LABS: Basophils % 0.3 % (0.0-0.8); Eosinophils % 0.4 % (0.00-10.9); Hematocrit 29.4 VOL% (42.0-52.0); Hemoglobin 8.6 GM/DL (14.0-18.0); Immature Granulocytes Absolute 0.08 #; Lymphocytes # 0.6 10*3/uL (1.4-4.0); Mean Corpuscular HGB Conc 29.3 GM/DL (32-36); Mean Corpuscular Volume 82.1 FL (87-102); Mean Platelet Volume 11.2 FL (9.6-12.0); Monocytes % 5.5 % (1.7-12.7); Neutrophils % 84.8 % (38.7-73.9); Platelet Count 336 T/CUMM (130-400); Red Blood Count 3.58 MC/CUMM (3.8-5.5); Red Cell Distribution Width 16.8 % (9.3-17.3); White Blood Count 7.9 T/CUMM (4-12)
[2020-12-27 05:59] LABS: Calcium 8.4 MG/DL (8.5-10.1); Osmolality,Calculated 283.5 MOS/KG (273-304); Potassium 4.3 MMOL/L (3.5-5.1)
[2020-12-27] MEDS: INSULIN REGULAR 100 UNIT/ML SUBCUT SCH ×2 (08:14→12:58)
[2020-12-27] MEDS: PANTOPRAZOLE 40 MG TABLET PO SCH (08:55)
[2020-12-27] MEDS: APIXABAN 5 MG TABLET PO SCH (08:55)
[2020-12-27] MEDS: DOCUSATE SODIUM 100 MG CAPSULE PO SCH (08:55)
[2020-12-27] MEDS: ASCORBIC ACID 500 MG TABLET PO SCH (08:55)
[2020-12-27] MEDS: predniSONE 5 MG TABLET PO SCH (08:55)
[2020-12-27] MEDS: TICAGRELOR 90 MG TABLET PO SCH (08:55)
[2020-12-27] MEDS: LACTULOSE 20 GM/30 ML UDCUP PO SCH (08:56)
[2020-12-27] MEDS: POLYETHYLENE GLYCOL POWDER 17 GM PACK PO SCH (08:56)
[2020-12-27] MEDS: MORPHINE ER 30 MG TABLET PO SCH (08:56)
[2020-12-27] MEDS: ASPIRIN CHEW 81 MG TABLET PO SCH (08:56)
[2020-12-27] MEDS: carvediloL 25 MG TABLET PO SCH (08:56)
[2020-12-27] MEDS: SKIN HEALING OINT (AQUAPHOR) 50 GM TUBE TOP SCH (08:56)
[2020-12-27] MEDS: NICOTINE 21 MG/24 HR PATCH TRANSDERM SCH (08:58)
[2020-12-27] MEDS ORDERED: FERROUS SULFATE 325 MG TABLET PO SCH (09:00)
[2020-12-27] MEDS ORDERED: amLODIPine 10 MG TABLET PO SCH (09:00)
[2020-12-27] MEDS ORDERED: hydrALAZINE 25 MG TABLET PO SCH (12:03)
[2020-12-27 12:35] VITALS: BP 167/79
[2021-01-23] MEDS ORDERED: RITUXIMAB 500 MG/50 ML IV SCH (09:00)
== END 2020-12-27 15:18 | disposition home health service (06) | DRG 246 ==
LOC: EDUNIT# → N.ED 21:12 → N.ICU 21:49 → N.EDINP 22:47 → N.ICU 23:16 → N.TELEN 12-23 14:01
PROVIDERS: ADMIT Internal Medicine Cardiovascular Disease; ATTEND Internal Medicine Cardiovascular Disease